=== PATIENT | female | born 1955 | race Caucasian/White ===

== ENCOUNTER → 2020-05-04 10:52 | Outpatient (BNVA) | payer OTHER, SELFPAY | PROVIDERS: PCP Internal Medicine; Visit Provider Surgery | DX: Z76.89 Persons encountering health services in other specified circumstances (principal) ==

== ENCOUNTER → 2020-11-03 09:35 | Outpatient (BNVA) | payer OTHER, SELFPAY | PROVIDERS: PCP Internal Medicine; Referring Provider Internal Medicine; Visit Provider Surgery ==

== ENCOUNTER → 2021-05-09 09:37 | Outpatient (BNVA) | payer OTHER, SELFPAY | PROVIDERS: PCP Internal Medicine; Referring Provider Internal Medicine; Visit Provider Surgery ==

== ENCOUNTER 2021-12-13 06:22 | Day surgery (SDC) | payer OTHER, SELFPAY ==
[2021-12-07 08:44] VITALS: BMI 28.0
[2021-12-13 06:52] VITALS: BP 142/92; PULSE 83; RESP 16; TEMP 36.9; O2SAT 96
--- NOTE | 2021-12-13 07:19 | HO.ANESPROP2 ---
[facility] Active Problems Active Problems: All Active Problems (Updated 12/06/21 @ 15:37 by Tequila Resendiz RN) Annual physical exam (Acute) Essential hypertension (Acute) Invasive ductal carcinoma of left breast (Acute) GERD (gastroesophageal reflux disease) (Acute) Past Medical History Medical History GERD (gastroesophageal reflux disease) History of left breast cancer HTN (hypertension) Invasive ductal carcinoma of left breast Leukopenia Mitral valve regurgitation Osteoporosis Rosacea Vitamin D deficiency Family History Family History Father History of brain cancer History of bladder cancer Mother History of rheumatoid arthritis Family history of COPD (chronic obstructive pulmonary disease) History of asthma History of heart disease Paternal Grandmother History of ovarian cancer Paternal Uncle History of throat cancer Paternal Aunt History of colon cancer Maternal Grandmother History of rheumatoid arthritis Surgical History Surgical History H/O colonoscopy History of section History of esophagogastroduodenoscopy (EGD) History of lumpectomy of left breast (01/14/18) History of Problems with Anesthesia: No Social History Social History Housing: House Alcohol intake: current Alcohol intake frequency: holidays/special occasions only Patient Tobacco Use Status: Never used Tobacco e-Cigarette/Vaping Use: Never Used Second Hand Smoke Exposure: No Use of substances other than those prescribed or required for medical reasons: No Are you DNR?: No Advance Directives: No Advance Directives Information Provided: No service: No Current occupational status: employed Cognitive needs: No Hearing needs: No Vision needs: No Meds Allergies Allergy/AdvReac Type Severity Reaction Status Date / Time Sulfa (Sulfonamide Allergy Severe HIVES; Verified 12/13/21 06:54 Antibiotics) SWOLLEN LIPS, swelling, hives Active Medications: Current Medications Lactated Ringer's (Lr) 1,000 mls @ 50 mls/hr IVCONT .Q20H HAI Sodium Biphosphate/Sodium Phosphate (Sodium Phosphate,[place] 133 Ml Enema) 133 ml [place] ONCE PRN PRN Reason: Poor Colonoscopy Prep Results Home Medications Medication Instructions Recorded Confirmed Last Taken Type anastrozole 1 mg tablet 1 mg PO DAILY 05/04/20 12/13/21 Unknown History azelaic acid 15 % topical gel 1 appl topical BID 01/19/21 12/13/21 Unknown History (Finacea) famotidine 20 mg tablet (Pepcid) 20 mg PO BEDTIME PRN gerd 01/19/21 12/13/21 Unknown History Exam Exam Date and Time: December 13, [id number] Height,Weight and Vital Signs: Height 5 ft 3.5 in Weight 73.028 kg Last Vital Signs Temp 98.4 F 12/13/21 06:52 Pulse 83 12/13/21 06:52 Resp 16 12/13/21 06:52 BP 142/92 H 12/13/21 06:52 Pulse Ox 96 12/13/21 06:52 O2 Del Method 12/13/21 06:52 Airway Mallampati Class: III TM Dist: >3cm Neck ROM: Full Heart: RRR Lungs: CTA Assessment and Plan Assessment Anesthesia Assessment: Anesthesia Plan Discussed and Chart Reviewed Final Anesthetic Review History of Problems with Anesthesia: No NPO: Yes ASA Class: II Final Preanesthetic Review: Meds/Allgs Chart Reviewed, Consent Obtained/Reviewed and Anes Risks/Benef Reviewed Patient Risk: Low Procedure Risk: Intermediate Anesthetic Plan Anesthetic Plan: MAC: Disposition: Standard PACU
[2021-12-13 08:41] VITALS: BP 111/71; PULSE 67; RESP 20; TEMP 36.4; O2SAT 100
--- NOTE | 2021-12-13 08:47 | P.BOP_ITS ---
Brief Operative Note Date of Service: 12/13/21 Pre-op diagnosis: GERD, Screening Post-op diagnosis: other (Hiatal hernia, Polyps) Procedure: EGD with biopsies, Colonoscopy to the cecum with bx/removal of polyps Surgeon: Marco Lynch Anesthesia: MAC Was an Studio Control Operator used for this Procedure?: No Estimated blood loss (mL): 2.0 Pathology: other (A. EG Junction at 36cm B. Cecal polyp C. Ascending colon polyp D. Rectal polyp) Condition: stable Disposition: PACU
[2021-12-13 08:56] VITALS: BP 114/76; PULSE 70; RESP 18; TEMP 36.4; O2SAT 99
--- NOTE | 2021-12-13 20:48 | OP_ITS ---
SURGEON: Marco Lynch MD INDICATIONS: The patient presents for evaluation of chronic gastroesophageal reflux, personal history of tubular adenoma of the colon, and need for colorectal cancer screening. Full consent has been obtained from her for this, including risks of bleeding and perforation. PREOPERATIVE DIAGNOSIS: Gastroesophageal reflux, personal history of tubular adenoma of the colon, colorectal cancer screening. POSTOPERATIVE DIAGNOSIS: Gastroesophageal reflux, personal history of tubular adenoma of the colon, colorectal cancer screening, hiatal hernia, colon polyps, diverticulosis, and internal hemorrhoids. PROCEDURE PERFORMED: Esophagogastroduodenoscopy with biopsies and colonoscopy to the cecum and terminal ileum with biopsy and removal of polyps. ESTIMATED BLOOD LOSS: COMPLICATIONS: ANESTHESIA: Monitored anesthesia care. ASSISTANTS: SPECIMENS: DESCRIPTION OF PROCEDURE: The patient was placed in the left lateral decubitus position. The Olympus video gastroscope was passed in the posterior oropharynx and upper esophagus under direct vision. The scope was passed slowly to the distal esophagus. The gastroesophageal junction appeared at 36 cm. There was some slight irregularity consistent with reflux but no evidence of esophagitis nor any definitive evidence of Resendiz's mucosa. The scope entered into the stomach. There was a small hiatal hernia. The scope was advanced to the pylorus, and the duodenum was cannulated to the descending portion. The duodenum including the bulb appeared normal without mass or ulceration. The scope was withdrawn back into the stomach. The gastric antrum and body appeared normal with good peristalsis. The scope was retroflexed visualizing the proximal stomach carefully, which appeared normal, without any sign of mass or ulceration. The scope was straightened and withdrawn back into the esophagus. Biopsies were obtained at the EG junction at 36 cm. Proximal to that the esophageal mucosa appeared normal. The scope was withdrawn from the patient. She was turned around for the colonoscopy. The digital rectal exam revealed no abnormalities. The Olympus video pediatric colonoscope was entered into the rectum advanced easily to the cecum. Once in the cecum, I did identify normal-appearing cecal pouch with appendiceal orifice. The entire cecum was well visualized and appeared normal other than a 3 mm polyp, which was biopsied and completely removed with cold biopsy forceps. The terminal ileum was cannulated and appeared normal. The scope was withdrawn back in the colon. The scope was slowly withdrawn assessing all mucosal surfaces carefully. Preparation was excellent. In the ascending colon and distal rectum, seen in the retroflexed position, were flat less than 5 mm polyps, which were each biopsied and completely removed with the cold biopsy forceps. I did not visualize any other polyps, colitis, or angiodysplasia. There was a mild amount of sigmoid diverticulosis. In the rectum, the scope was retroflexed visualizing small internal hemorrhoids as well. The scope was straightened and withdrawn from the patient. She tolerated the procedure well and was returned to the recovery area in stable condition. IMPRESSION: 1. Small colon polyps, status post biopsy and removal. 2. Diverticulosis. 3. Internal hemorrhoids. 4. Hiatal hernia, gastroesophageal reflux. PLAN: The results of the biopsies will be checked. I would recommend a repeat colonoscopy in 5 years. At this point, she is using [id number] H2 blockers for symptomatic relief of reflux, and I advised her to continue that as needed. She was advised not to use any aspirin and NSAIDs for 1 week. She will otherwise see me on a p.r.n. basis. MD RASHIDA Horowitz/JOSE / [id number] MTDD
== END 2021-12-13 09:49 | disposition home or self-care (01) ==
PROVIDERS: PCP Internal Medicine; Visit Provider Internal Medicine
PROC: (CPT 45380; principal; 2021-12-13 07:30)
DX: Z12.11 Encounter for screening for malignant neoplasm of colon (principal); Z86.010 Personal history of colon polyps; D12.2 Benign neoplasm of ascending colon; K63.5 Polyp of colon; K62.1 Rectal polyp; K57.30 Diverticulosis of large intestine without perforation or abscess without bleeding; K64.8 Other hemorrhoids; K21.9 Gastro-esophageal reflux disease without esophagitis; K44.9 Diaphragmatic hernia without obstruction or gangrene; I10 Essential (primary) hypertension; L71.9 Rosacea, unspecified; C50.912 Malignant neoplasm of unspecified site of left female breast; Z92.3 Personal history of irradiation; Z79.811 Long term (current) use of aromatase inhibitors; Z79.899 Other long term (current) drug therapy
CPT/HCPCS: 45380; 43239; 88305; J2250

== ENCOUNTER → 2022-08-07 09:35 | Outpatient (BNVA) | payer OTHER, SELFPAY | PROVIDERS: PCP Internal Medicine; Visit Provider Surgery | DX: Z13.89 Encounter for screening for other disorder (principal) ==

== ENCOUNTER 2023-01-22 09:02 | Outpatient (REF) | payer OTHER, SELFPAY ==
[2023-01-22 09:20] LABS: MANUAL DIFF FLAG NO
[2023-01-22 10:00] LABS: Basophils Absolute Auto 0.1 X10*3/uL (0.0-0.2); Basophils Percent Auto 1.1 % (0-2); Eosinophils Absolute Auto 0.3 X10*3/uL (0.0-0.4); Eosinophils Percent Auto 6.1 % (0-4); Hematocrit 41.7 % (37.0-47.0); Hemoglobin 13.8 g/dl (12.0-16.0); Imm Gran Abs Auto 0.03 X10*3/uL (0.00-0.03); Imm Gran Pct Auto 0.6 % (0.0-0.4); Lymphocytes Absolute Auto 1.5 X10*3/uL (1.2-4.9); Lymphocytes Percent Auto 27.6 % (20-40); Mean Corpuscular HGB Conc 33.1 g/dl (31.0-35.0); Mean Corpuscular Volume 93.7 fL (80.0-98.0); Mean Platelet Volume 11.4 fL (9.4-12.3); Monocytes Absolute Auto 0.6 X10*3/uL (0.1-1.2); Neutrophils Absolute Auto 2.9 x10*3/uL (2.0-8.3); Neutrophils Percent Auto 53.6 % (45-73); Platelet Count 283 X10*3/uL (160-400); Red Blood Count 4.45 X10*6/uL (4.20-5.50); Red Cell Distribution Width 13.2 % (11.0-16.0); White Blood Count 5.4 X10*3/uL (4.8-10.8)
[2023-01-22 11:42] LABS: Alanine Aminotransferase 25 U/L (0-31); Albumin Level 4.1 g/dL (3.5-5.0); Alkaline Phosphatase 60 U/L (39-117); Anion Gap 11 (12-20); Aspartate Amino Transferase 20 U/L (5-31); Bilirubin Total 0.5 mg/dL (0.0-1.0); Blood Urea Nitrogen 18 mg/dL (9-16); Carbon Dioxide 26 mmol/L (22-29); Chloride 108 mmol/L (96-108); Cholesterol 227 mg/dL (<200); Estimated Glomerular Filt Rate > 60; Glucose Random 98 mg/dL (60-115); HDL Cholesterol 73 mg/dL (>40); LDL Cholesterol Calculated 140 mg/dL (<100); Potassium 4.2 mmol/L (3.3-5.1); Sodium 141 mmol/L (135-145); Total Protein 7.1 g/dL (6.5-8.0); Triglycerides 74 mg/dL (<150)
[2023-01-22 12:06] LABS: Free T4 (Free Thyroxine) 0.96 ng/dL (0.71-1.85); Thyroid Stimulating Hormone 0.88 uIU/mL (0.32-4.0); Vitamin D 25-OH Total 51.1 ng/mL (>30)
[2023-01-22 12:20] LABS: Folate 10.5 ng/mL (> or = 4.0); Vitamin B12 255 pg/mL (200-900)
== END 2023-01-22 09:03 | disposition home or self-care (01) ==
LOC: HO.LAB 09:02
PROVIDERS: PCP Internal Medicine; Visit Provider Internal Medicine
DX: I10 Essential (primary) hypertension (principal); E78.00 Pure hypercholesterolemia, unspecified; E55.9 Vitamin D deficiency, unspecified
CPT/HCPCS: 36415; 80053; 80061; 82306; 82607; 82746; 84439; 84443; 85025

== ENCOUNTER 2023-02-04 08:52 | Outpatient (AMB) | payer OTHER, SELFPAY ==
--- NOTE | 2023-02-04 08:54 | A.OFFPC_ITS ---
Vital Signs 02/04/23 08:56 Height 5 ft 3.5 in Weight 160 lb BMI 27.9 BP 160/98 H Blood Pressure Location Lt brachial Position Sitting Pulse 78 Pulse Source Pulse Oximeter Pulse Oximetry (%) 99 Oxygen Delivery Method Room Air Intake Visit Reasons: PE Intake Note: Patient here for a physical exam Stitcher Utility Required: No Accompanied by: Self / Same As Patient Allergies Sulfa (Sulfonamide Antibiotics) Allergy (Severe, Verified 02/04/23 08:57) HIVES; SWOLLEN LIPS, swelling, hives Medication List - Last Reconciled 02/04/23 by Chaitanya Hayes MD anastrozole 1 mg PO DAILY azelaic acid 15% (Finacea) 1 appl topical BID cholecalciferol (vitamin D3) 50 mcg PO DAILY lisinopril 10 mg PO DAILY omeprazole 20 mg PO DAILY Tobacco use date assessed: 02/04/23 Fall risk assessment: No Falls in past year Last assessed Fall Risk: 02/04/23 Dental Screening Dental Screen Date: 02/04/23 Did you have a dental visit in the last 12 months?: No Did you have a dental problem in the last 6 months where you did not have access to dental care?: No Was dental information given to patient?: Patient has dentist HPI PE HPI Details 67-year-old overweight female with a his tory of left breast [id number], hypertension GERD last seen last year January 2022. Bone density September 2020, colonoscopy is up-to-date mammogram due. Review of the notes follows up with hematology oncology in [facility] August [address]22 Dr. Sarabia status post radiation March 2018 presently on anastrozole screening mammogram February 2022 repeat DEXA scan scheduled for September 2022 [facility] Medical History GERD (gastroesophageal reflux disease) History of left breast cancer HTN (hypertension) Invasive ductal carcinoma of left breast Leukopenia Mitral valve regurgitation Osteoporosis Rosacea Vitamin D deficiency Surgical History H/O colonoscopy History of esophagogastroduodenoscopy (EGD) History of lumpectomy of left breast (01/14/18) History of section Family History (Updated 02/04/23 @ 08:55 by JUANITA Paige) Father History of brain cancer History of bladder cancer Mother History of rheumatoid arthritis Family history of COPD (chronic obstructive pulmonary disease) History of asthma History of heart disease Paternal Grandmother History of ovarian cancer Paternal Uncle History of throat cancer Paternal Aunt History of colon cancer Maternal Grandmother History of rheumatoid arthritis Social History (Updated 02/04/23 @ 09:14 by Chaitanya Hayes MD) Housing: House Alcohol intake: current Alcohol intake frequency: holidays/special occasions only Patient Tobacco Use Status: Never used Tobacco e-Cigarette/Vaping Use: Never Used Second Hand Smoke Exposure: No service: No Current occupational status: employed Current occupational exposures/hazards: No Cognitive needs: No Hearing needs: No Vision needs: No Questionnaire PHQ-9 Over the last 2 weeks, how often have you been bothered by any of the following problems? 1. Little interest or pleasure in doing things: not at all 2. Feeling down, depressed, or hopeless: not at all 3. Trouble falling or staying asleep, or sleeping too much: not at all 4. Feeling tired or having little energy: not at all 5. Poor appetite or overeating: not at all 6. Feeling bad about yourself - or that you are a failure or have let yourself or your family down: not at all 7. Trouble concentrating on things, such as reading the newspaper or watching television: not at all 8. Moving or speaking so slowly that other people could have noticed. Or the opposite - being so fidgety or restless that you have been moving around a lot more than usual: not at all 9. Thoughts that you would be better off or of hurting yourself in some way: not at all Total score: 0 Source: Developed by Drs. Marco Smith, Judi Peña, Andrew Sanchez and colleagues, with an educational rbyan from [employer]. Thrive Questionnaire Date Thrive assessed: 02/04/23 I am a: Patient What is your living situation today?: I have a steady place to live Within the past 12 months, did the food you bought not last and you didn't have the money to get more?: Never true Within the past 12 months, did you worry whether your food would run out before you got money to buy more?: Never true Do you have trouble paying for medicines?: No Do you have trouble getting transportation to medical appointments?: No Do you have trouble paying your heating and electricity bill?: No Do you have trouble taking care of your child, family member or friend?: No Do you have trouble with day-to-day activities such as bathing, preparing meals, shopping, managing finances, etc.?: No Are you currently unemployed and looking for a job?: No Are you interested in more education?: No Please select the resources that you would like help with: None Currently or been in a relationship where the following occur: no concerns reported AUDIT C Alcohol Use Questionnaire (AUDIT-C) 1. How often do you have a drink containing alcohol?: 2-3 times a week 2. How many drinks containing alcohol do you have on a typical day when you are drinking?: 3 or 4 3. How often do you have six or more drinks on one occasion?: Never Total Score: 4 AYSE-7 AMB Questionnaire AYSE-7 Date AYSE - 7 assessed: 02/04/23 Feeling nervous, anxious, or on edge: 0 = Not at all Not being able to stop or control worryin = Not at all Worrying too much about different things: 0 = Not at all Trouble relaxin = Not at all Being so restless that it is hard to sit still: 0 = Not at all Becoming easily annoyed or irritable: 0 = Not at all Feeling afraid as if something awful might happen: 0 = Not at all Total AYSE-7 score (0-4 normal; 5-9 mild; 10-14 moderate; 15-21 severe): 0 Source: Developed by Drs. Marco Smith, Judi Peña, Andrew Sanchez and colleagues, with an educational bryan from [employer]. Review of Systems Const Denies poor appetite and Denies weakness Eyes Denies no additional complaints ENT Reports Normal hearing present, Denies dizziness, Denies nasal congestion, Denies tinnitus and Denies sore throat Card Denies chest pain, Denies syncope, Denies rapid heart rate and Denies dyspnea Resp Denies cough and Denies dyspnea GI Denies change in stool character, Reports constipation, Denies diarrhea, Denies nausea and Denies vomiting Denies urinary frequency, Denies difficulty voiding and Denies dysuria Neuro Reports Normal hearing present, Denies confusion, Denies dizziness, Denies syncope and Denies weakness Psych Denies confusion Physical exam (Primary Care) Vital Signs: Last Vital Signs Pulse 78 02/04/23 08:56 BP 160/98 H 02/04/23 08:56 Pulse Ox 99 02/04/23 08:56 Oxygen Delivery Method Room Air 02/04/23 08:56 BMI result Body Mass Index 27.9 Tobacco/Smoking Status: Tobacco use Status Tobacco use date assessed 02/04/23 02/04/23 09:01 Patient Tobacco Use Status Never used Tobacco 02/04/23 09:01 e-Cigarette/Vaping Use Never Used 02/04/23 09:01 PHQ-9: PHQ-9 Score PHQ-9: Total score 0 02/04/23 09:01 Thrive Assessment: Date of Thrive Assessment Date Thrive assessed 02/04/23 02/04/23 09:01 Currently or been in a relationship where the following occur: no concerns reported Const General: No confusion Orientation/consciousness: No confusion HENMT Head: Yes normocephalic Ears: external ears normal and TM's normal bilaterally Face and sinus: Yes normal facial exam Mouth: moist mucous membranes Throat: Yes tonsils normal Eyes Conjunctivae: conjunctivae normal Pupils: Equal, round and reactive pupils present and Pupil accommodation reflex normal Direct Ophthalmoscopy: normal light reflex Neck Neck: No lymphadenopathy Thyroid: Thyroid normal Chest Chest palpation & inspection: normal inspection of the chest Resp Effort & Inspection: normal respiratory effort and no audible wheezes Auscultation: clear to auscultation bilaterally, no crackles, no wheezes and lung sounds not diminished Cardio Rate: regular rate Rhythm: regular rhythm Peripheral pulses: radial pulses present and dorsalis pedis present GI Palpation (GI): no masses Auscultation: normal bowel sounds and normoactive bowel sounds Rectal Exam - Female: deferred Skin General skin exam: no rashes or lesions noted Rashes: no rashes Neuro General: No confusion Cranial nerves: Yes Equal, round and reactive pupils present and Yes Normal hearing present Cognition (Neuro): normal cognition Gait exam (Neuro): Normal gait present Motor exam (neuro): 5/5 motor strength present throughout Deep tendon reflexes (DTR's): Right brachioradialis reflex intensity grade: 2+, Left brachioradialis reflex intensity grade: 2+, Right patellar reflex intensity grade: 2+ and Left patellar reflex intensity grade: 2+ Extrem General: No edema Assessment and Plan Assessment & Plan (1) Annual physical exam: Code(s): Z00.00 - Encounter for general adult medical examination without abnormal findings (2) Invasive ductal carcinoma of left breast: Comment: June 2018, radiation, lumpectomy Dr. David 2018 anastrozole(March 2018) 7 year Code(s): C50.912 - Malignant neoplasm of unspecified site of left female breast Plan: Patient continue to follow-up with hematology oncology on anastrozole(March 2018) 7 year (3) Essential hypertension: Code(s): I10 - Essential (primary) hypertension Plan: Continue with blood pressure medication. Decrease salt intake and exercise patient is on lisinopril 5 mg once a day (4) GERD (gastroesophageal reflux disease): Code(s): K21.9 - Gastro-esophageal reflux disease without esophagitis Plan: Avoid the foods that causes that usually spicy foods, tomato products, juices, coffee, soda and foods that your sensitive to. After eating do not lie down, allow 3-4 hours before in lie down. And keep the head of bed above 30 degrees to avoid the acid from going up. Continue with omeprazole (5) Hypercholesterolemia: Code(s): E78.00 - Pure hypercholesterolemia, unspecified Plan: Avoid fried foods, chicken skin, eggs, butter margarine, pastries and meat. Be it pork or beef they have a lot of cholesterol LDL goal of less than 130 and triglyceride of less than 150 (6) Osteopenia: Code(s): M85.80 - Other specified disorders of bone density and structure, unspecified site Plan: Patient is being followed up by hematology oncology (7) Hearing difficulty: Code(s): H91.90 - Unspecified hearing loss, unspecified ear Orders: Referrals Speech and Hearing Referral H91.90 - Unspecified hearing loss, unspecified ear Medications: Changed From lisinopril 5 mg PO DAILY 90 tabs 2RF I10 - Essential (primary) hypertension To lisinopril 10 mg PO DAILY 90 tabs 2RF I10 - Essential (primary) hypertension Coding Level of Care Code Est Pt Prev Care >65y(68705) Diagnoses Annual physical exam Z00.00 Invasive ductal carcinoma of left breast C50.912 Essential hypertension I10 GERD (gastroesophageal reflux disease) K21.9 Hypercholesterolemia E78.00 Osteopenia M85.80 Hearing difficulty H91.90
[2023-02-04 08:56] VITALS: BP 160/98; PULSE 78; O2SAT 99; BMI 27.9
== END 2023-02-04 09:27 | disposition home or self-care (01) ==
PROVIDERS: PCP Internal Medicine; Visit Provider Internal Medicine
DX: Z00.00 Encounter for general adult medical examination without abnormal findings (principal); C50.912 Malignant neoplasm of unspecified site of left female breast; I10 Essential (primary) hypertension; K21.9 Gastro-esophageal reflux disease without esophagitis; E78.00 Pure hypercholesterolemia, unspecified; M85.80 Other specified disorders of bone density and structure, unspecified site; H91.90 Unspecified hearing loss, unspecified ear
CPT/HCPCS: 99397

== ENCOUNTER → 2023-03-26 09:29 | Outpatient (BNVA) | payer OTHER, SELFPAY | PROVIDERS: PCP Internal Medicine; Visit Provider Surgery ==

== ENCOUNTER 2023-03-28 09:44 | Outpatient (AMB) | payer OTHER, SELFPAY ==
--- NOTE | 2023-03-28 09:59 | MHC.OFFVIS ---
Intake Vital Signs 03/28/23 10:11 Height 5 ft 3.5 in Weight 166 lb BMI 28.9 BP 183/85 H Blood Pressure Location Lt brachial Position Sitting Pulse 77 Intake Visit Reasons: breast exam after mammo Intake Note: Patient is seen in office for breast exam after mammogram. Patient c/o: right breast felt swollen and some burning mm [facility]: 03/25/23 Second Miller Required: No Last Remodeler Repairer: Last Remodeler Repairer Present Accompanied by: Self / Same As Patient Allergies Sulfa (Sulfonamide Antibiotics) Allergy (Severe, Verified 03/28/23 10:00) HIVES; SWOLLEN LIPS, swelling, hives Medication List - Last Reconciled 03/28/23 by Nithin David MD anastrozole 1 mg PO DAILY azelaic acid 15% (Finacea) 1 appl topical BID cholecalciferol (vitamin D3) 50 mcg PO DAILY lisinopril 10 mg PO DAILY omeprazole 20 mg PO DAILY HPI HPI Comments History of Present Illness Details 67-year-old female returning today following left breast lumpectomy and sentinel node biopsy of the left axilla on 01/14/2018. The pathology revealed invasive ductal ca 1.2 cm with 0/10 sentinel nodes positive for malignancy, ER+/WY+/Her2-oliva negative. (pT1a N0 (sn)(i-). She completed radiation therapy and is now taking Arimodex daily (planned for total of 7 years). She denies any new symptoms in the left breast and denies any swelling in the left arm. She continues to report an area of thickening in the upper outer quadrant extending into the axilla in the area of axillary breast tissue which comes and goes, both in the right and left breast.? Her most recent mammogram performed at [facility] on 03/25/2023 revealed no mammographic evidence of malignancy (BI-RADS 2). Yearly annual screening was recommended.? She denies any new breast symptoms today. ? [facility] Medical History History of left breast cancer HTN (hypertension) Leukopenia Osteoporosis Vitamin D deficiency GERD (gastroesophageal reflux disease) Invasive ductal carcinoma of left breast Rosacea Mitral valve regurgitation Surgical History H/O colonoscopy History of esophagogastroduodenoscopy (EGD) History of lumpectomy of left breast (01/14/18) History of section Family History Father History of brain cancer History of bladder cancer Mother History of rheumatoid arthritis Family history of COPD (chronic obstructive pulmonary disease) History of asthma History of heart disease Paternal Grandmother History of ovarian cancer Paternal Uncle History of throat cancer Paternal Aunt History of colon cancer Maternal Grandmother History of rheumatoid arthritis Social History Housing: House Alcohol intake: current Alcohol intake frequency: holidays/special occasions only Patient Tobacco Use Status: Never used Tobacco e-Cigarette/Vaping Use: Never Used Second Hand Smoke Exposure: No service: No Current occupational status: employed Current occupational exposures/hazards: No Cognitive needs: No Hearing needs: No Vision needs: No Review of Systems ENT Reports Normal hearing present Neuro Reports Normal hearing present Physical Exam Const General: no acute distress and well developed Nutritional Appearance: well nourished Orientation/consciousness: patient oriented x3 Limitations: no limitations HEENT Head: Yes normocephalic and Yes atraumatic Chest Other: Right breast: No skin change, no nipple discharge, no palpable mass, no enlarged lymph nodes Left breast: Well-healed incision in the upper outer quadrant and axilla. No new skin change, no nipple discharge, no palpable mass, no enlarged lymph nodes. Resp Effort & Inspection: normal respiratory effort, no audible wheezes, no cough and no respiratory distress GI Inspection: Yes normal to inspection Skin General skin exam: no rashes or lesions noted Neuro General: patient oriented x3 Cranial nerves: Yes Normal hearing present Extrem General: Yes no clubbing, cyanosis or edema Assessment & Plan Assessment & Plan (1) Invasive ductal carcinoma of left breast: Comment: June 2018, radiation, lumpectomy Dr. David 2017 anastrozole(March 2018) 7 year Code(s): C50.912 - Malignant neoplasm of unspecified site of left female breast Plan 67-year-old female patient with a prior history of invasive ductal carcinoma of the left breast status post lumpectomy with needle localization, sentinel node biopsy. This was followed by radiation therapy and Arimidex which she continues on today. Examination today reveals no suspicious findings no evidence of recurrence disease. Her most recent mammogram dated 03/25/2023 revealed no mammographic evidence of malignancy (BI-RADS 1). She should follow up in 1 year for routine breast examination, sooner p.r.n.. Coding Level of Care Code Est Pt Level 3 (80874) Diagnoses Invasive ductal carcinoma of left breast C50.912
[2023-03-28 10:11] VITALS: BP 183/85; PULSE 77; BMI 28.9
== END 2023-03-28 10:14 | disposition home or self-care (01) ==
PROVIDERS: PCP Internal Medicine; Visit Provider Surgery
DX: C50.912 Malignant neoplasm of unspecified site of left female breast (principal)
CPT/HCPCS: 99213

== ENCOUNTER → 2023-03-28 09:44 | Outpatient (BNVA) | payer OTHER, SELFPAY | PROVIDERS: PCP Internal Medicine; Visit Provider Surgery ==

== ENCOUNTER 2023-05-22 08:34 | Outpatient (AMB) | payer OTHER, SELFPAY ==
[2023-05-22 08:37] VITALS: BP 132/90; PULSE 86; O2SAT 99; BMI 28.6
--- NOTE | 2023-05-22 08:38 | A.OFFPC_ITS ---
Vital Signs 05/22/23 08:37 Height 5 ft 3.5 in Weight 164 lb BMI 28.6 BP 132/90 H Blood Pressure Location Lt brachial Position Sitting Pulse 86 Pulse Source Pulse Oximeter Pulse Oximetry (%) 99 Oxygen Delivery Method Room Air Intake Visit Reasons: Hypertension Allergies Sulfa (Sulfonamide Antibiotics) Allergy (Severe, Verified 05/22/23 08:38) HIVES; SWOLLEN LIPS, swelling, hives Tobacco use date assessed: 05/22/23 Fall risk assessment: No Falls in past year Last assessed Fall Risk: 05/22/23 HPI Hypertension HPI Details 68-year-old overweight female with a his tory of breast cancer left 2017, hypertension hypercholesterolemia GERD osteopenia coming in for follow-up last seen in January 2023. Patient follows up with the surgeon March 2023 and up-to-date with mammogram, hematology oncology also February 2023 Dr. Sarabia(status post needle localization excision and axillary dissection status post radiation therapy completed March 2018 declines adjuvant zoledronic acid) anastrozole March 2018. BP at home has been good. growth cyst on the R 4th finger. It did have the bone density done. Otherwise no nausea no vomiting no chest pains no shortness of breath no bowel bladder symptoms. [facility] Medical History History of left breast cancer HTN (hypertension) Leukopenia Osteoporosis Vitamin D deficiency GERD (gastroesophageal reflux disease) Invasive ductal carcinoma of left breast Rosacea Mitral valve regurgitation Surgical History H/O colonoscopy History of esophagogastroduodenoscopy (EGD) History of lumpectomy of left breast (01/14/18) History of section Family History Father History of brain cancer History of bladder cancer Mother History of rheumatoid arthritis Family history of COPD (chronic obstructive pulmonary disease) History of asthma History of heart disease Paternal Grandmother History of ovarian cancer Paternal Uncle History of throat cancer Paternal Aunt History of colon cancer Maternal Grandmother History of rheumatoid arthritis Social History Housing: House Alcohol intake: current Alcohol intake frequency: holidays/special occasions only Patient Tobacco Use Status: Never used Tobacco e-Cigarette/Vaping Use: Never Used Second Hand Smoke Exposure: No service: No Current occupational status: employed Current occupational exposures/hazards: No Cognitive needs: No Hearing needs: No Vision needs: No Questionnaire PHQ-9 Over the last 2 weeks, how often have you been bothered by any of the following problems? 1. Little interest or pleasure in doing things: not at all 2. Feeling down, depressed, or hopeless: not at all 3. Trouble falling or staying asleep, or sleeping too much: not at all 4. Feeling tired or having little energy: not at all 5. Poor appetite or overeating: not at all 6. Feeling bad about yourself - or that you are a failure or have let yourself or your family down: not at all 7. Trouble concentrating on things, such as reading the newspaper or watching television: not at all 8. Moving or speaking so slowly that other people could have noticed. Or the opposite - being so fidgety or restless that you have been moving around a lot more than usual: not at all 9. Thoughts that you would be better off or of hurting yourself in some way: not at all Total score: 0 Source: Developed by Drs. Marco Smith, Andrew Arredondo and colleagues, with an educational bryan from [employer]. Thrive Questionnaire Date Thrive assessed: 02/04/23 AUDIT C Alcohol Use Questionnaire (AUDIT-C) 1. How often do you have a drink containing alcohol?: 2-3 times a week 2. How many drinks containing alcohol do you have on a typical day when you are drinking?: 3 or 4 3. How often do you have six or more drinks on one occasion?: Never Total Score: 4 AYSE-7 AMB Questionnaire AYSE-7 Date AYSE - 7 assessed: 05/22/23 Source: Developed by Drs. Marco Smith, Andrew Arredondo and colleagues, with an educational bryan from [employer]. Physical exam (Primary Care) Vital Signs: Oxygen Delivery Method Room Air 05/22/23 08:37 BMI result Body Mass Index 28.6 Tobacco/Smoking Status: Tobacco use Status Tobacco use date assessed 01/03/24 01/03/24 08:38 Patient Tobacco Use Status Never used Tobacco 05/22/23 08:38 e-Cigarette/Vaping Use Never Used 05/22/23 08:38 PHQ-9: PHQ-9 Score PHQ-9: Total score 0 05/22/23 08:38 Thrive Assessment: Date of Thrive Assessment Date Thrive assessed 02/04/23 05/22/23 08:38 Const General: alert; No acute distress Eyes Conjunctivae: conjunctivae normal Resp Auscultation: clear to auscultation bilaterally Cardio Rate: regular rate Rhythm: regular rhythm GI Inspection: Yes normal to inspection Extrem Other: Right 4th finger mass 1 cm rounded mass discussed that this is ganglion cyst and which is monitor for this. No surgeries needed General: Yes normal to inspection and No edema Assessment and Plan Assessment & Plan (1) Invasive ductal carcinoma of left breast: Comment: June 2018, radiation, lumpectomy Dr. David 2018 anastrozole(March 2018) 7 year Code(s): C50.912 - Malignant neoplasm of unspecified site of left female breast Plan: Continue to follow-up with Hematology-Oncology and mammogram is up-to-date (2) Essential hypertension: Code(s): I10 - Essential (primary) hypertension Plan: Continue with blood pressure medication. Decrease salt intake and exercise advised to monitor at home on lisinopril 10 mg once a day. BP at home 122/75 controlled continue withy BP meds (3) GERD (gastroesophageal reflux disease): Code(s): K21.9 - Gastro-esophageal reflux disease without esophagitis Plan: Avoid the foods that causes that usually spicy foods, tomato products, juices, coffee, soda and foods that your sensitive to. After eating do not lie down, allow 3-4 hours before in lie down. And keep the head of bed above 30 degrees to avoid the acid from going up. (4) Hypercholesterolemia: Code(s): E78.00 - Pure hypercholesterolemia, unspecified Plan: Avoid fried foods, chicken skin, eggs, butter margarine, pastries and meat. Be it pork or beef they have a lot of cholesterol LDL goal of less than 130 and triglyceride of less than 150 (5) Osteopenia: Code(s): M85.80 - Other specified disorders of bone density and structure, unspecified site Plan: Bone density is due this year but did not see any results. Coding Level of Care Code Est Pt Level 4 (83881) Diagnoses Invasive ductal carcinoma of left breast C50.912 Essential hypertension I10 GERD (gastroesophageal reflux disease) K21.9 Hypercholesterolemia E78.00 Osteopenia M85.80
== END 2023-05-22 08:53 | disposition home or self-care (01) ==
PROVIDERS: PCP Internal Medicine; Visit Provider Internal Medicine
DX: C50.912 Malignant neoplasm of unspecified site of left female breast (principal); I10 Essential (primary) hypertension; K21.9 Gastro-esophageal reflux disease without esophagitis; E78.00 Pure hypercholesterolemia, unspecified; M85.80 Other specified disorders of bone density and structure, unspecified site
CPT/HCPCS: 99214

== ENCOUNTER 2023-07-25 08:14 | Outpatient (REF) | payer OTHER, SELFPAY | END 2023-07-25 08:15 | disposition home or self-care (01) | LOC: HO.SH 08:14 | PROVIDERS: Visit Provider Internal Medicine | DX: Z01.118 Encounter for examination of ears and hearing with other abnormal findings (principal); H90.42 Sensorineural hearing loss, unilateral, left ear, with unrestricted hearing on the contralateral side; H93.12 Tinnitus, left ear | CPT/HCPCS: 92557; 92567 ==

== ENCOUNTER 2024-02-10 08:48 | Outpatient (AMB) | payer OTHER, SELFPAY ==
[2024-02-10 08:51] VITALS: BP 130/72; PULSE 75; O2SAT 99; BMI 28.2
--- NOTE | 2024-02-10 08:51 | A.OFFPC_ITS ---
Vital Signs 02/10/24 08:51 Height 5 ft 3.5 in Weight 162 lb BMI 28.2 BP 130/72 Blood Pressure Location Lt brachial Position Sitting Pulse 75 Pulse Source Pulse Oximeter Pulse Oximetry (%) 99 Oxygen Delivery Method Room Air Intake Visit Reasons: Annual Exam Measurement Department Chief Clerk Required: No Accompanied by: Self / Same As Patient Allergies Sulfa (Sulfonamide Antibiotics) Allergy (Severe, Verified 02/10/24 09:10) HIVES; SWOLLEN LIPS, swelling, hives Medication List - Last Reconciled 02/10/24 by Shell Garcia PA-C anastrozole 1 mg PO DAILY azelaic acid 15% (Finacea) 1 appl topical BID cholecalciferol (vitamin D3) 50 mcg PO DAILY lisinopril 10 mg PO DAILY omeprazole 20 mg PO DAILY Tobacco use date assessed: 05/22/23 Fall risk assessment: No Falls in past year Last assessed Fall Risk: 02/10/24 Dental Screening Dental Screen Date: 02/10/24 Did you have a dental visit in the last 12 months?: Yes Did you have a dental problem in the last 6 months where you did not have access to dental care?: No Was dental information given to patient?: Patient has dentist HPI Annual Exam HPI Details 68 year old female with past history of breast cancer left 2017, hypertension hypercholesterolemia GERD osteopenia coming in for annual exam. Patient was seen by [facility] speech and hearing found to have asymmetric hearing loss and tinnitus recommend ENT referral. Colonoscopy completed in 2021. Mammogram done yearly and breast exam this March with General surgery. Patient states she is feeling generally well however she does have difficulty sleeping 4-5 nights per week due to difficulty quieting her brain and will occasionally have night sweats 3-4 times per month. She also mentions over the last week or so she has had a red irritating rash on the bottom of her right foot. She has been using emollient cream to help with her symptoms which has reduced the redness however the rash is now peeling. [facility] History History of left breast cancer HTN (hypertension) Leukopenia Osteoporosis Vitamin D deficiency GERD (gastroesophageal reflux disease) Invasive ductal carcinoma of left breast Rosacea Mitral valve regurgitation Surgical History H/O colonoscopy History of esophagogastroduodenoscopy (EGD) History of lumpectomy of left breast (01/14/18) History of section Family History Father History of brain cancer History of bladder cancer Mother History of rheumatoid arthritis Family history of COPD (chronic obstructive pulmonary disease) History of asthma History of heart disease Paternal Grandmother History of ovarian cancer Paternal Uncle History of throat cancer Paternal Aunt History of colon cancer Maternal Grandmother History of rheumatoid arthritis Social History Housing: House Alcohol intake: current Alcohol intake frequency: holidays/special occasions only Patient Tobacco Use Status: Never used Tobacco Tobacco use type: Cigarette e-Cigarette/Vaping Use: Never Used Second Hand Smoke Exposure: No service: No Current occupational status: employed Current occupational exposures/hazards: No Cognitive needs: No Hearing needs: No Vision needs: No Questionnaire PHQ-9 Over the last 2 weeks, how often have you been bothered by any of the following problems? 1. Little interest or pleasure in doing things: not at all 2. Feeling down, depressed, or hopeless: not at all 3. Trouble falling or staying asleep, or sleeping too much: several days 4. Feeling tired or having little energy: several days 5. Poor appetite or overeating: not at all 6. Feeling bad about yourself - or that you are a failure or have let yourself or your family down: not at all 7. Trouble concentrating on things, such as reading the newspaper or watching television: not at all 8. Moving or speaking so slowly that other people could have noticed. Or the opposite - being so fidgety or restless that you have been moving around a lot more than usual: not at all 9. Thoughts that you would be better off or of hurting yourself in some wa y: not at all Total score: 2 Depression Screening Interpretation: Negative Depression Screening Done: Yes Source: Developed by Drs. Marco Smith, Judi Peña, Andrew Sanchez and colleagues, with an educational bryan from [employer]. Thrive Questionnaire Date Thrive assessed: 02/10/24 I am a: Patient What is your living situation today?: I have a steady place to live Within the past 12 months, did the food you bought not last and you didn't have the money to get more?: Never true Within the past 12 months, did you worry whether your food would run out before you got money to buy more?: Never true Do you have trouble paying for medicines?: No Do you have trouble getting transportation to medical appointments?: No Do you have trouble paying your heating and electricity bill?: No Do you have trouble taking care of your child, family member or friend?: No Do you have trouble with day-to-day activities such as bathing, preparing meals, shopping, managing finances, etc.?: No Are you currently unemployed and looking for a job?: No Are you interested in more education?: No Please select the resources that you would like help with: None Currently or been in a relationship where the following occur: No concerns reported THRIVE Score: 0 AUDIT C Alcohol Use Questionnaire (AUDIT-C) 1. How often do you have a drink containing alcohol?: 4 or more times a week 2. How many drinks containing alcohol do you have on a typical day when you are drinking?: 1 or 2 3. How often do you have six or more drinks on one occasion?: Never Total Score: 4 AYSE-7 AMB Questionnaire AYSE-7 Date AYSE - 7 assessed: 05/22/23 Feeling nervous, anxious, or on edge: 0 = Not at all Not being able to stop or control worryin = Not at all Worrying too much about different things: 0 = Not at all Trouble relaxin = Not at all Being so restless that it is hard to sit still: 0 = Not at all Becoming easily annoyed or irritable: 0 = Not at all Feeling afraid as if something awful might happen: 0 = Not at all Total AYSE-7 score (0-4 normal; 5-9 mild; 10-14 moderate; 15-21 severe): 0 Source: Developed by Drs. Marco Smith, Judi Peña, Andrew Sanchez and colleagues, with an educational bryan from [employer]. Review of Systems Const Denies body aches, Denies fatigue, Denies fever(s), Denies frequent falls, Denies headache(s) and Denies weakness Eyes Reports no additional complaints and Denies change in vision ENT Denies dysphagia, Denies dizziness, Denies facial pain, Denies headache(s), Denies nasal congestion and Denies odynophagia Card Denies chest pain, Denies syncope, Denies irregular heart rhythm, Denies leg edema, Denies lightheadedness and Denies dyspnea Resp Denies cough and Denies dyspnea GI Denies constipation, Denies dysphagia, Denies dyspepsia, Denies diarrhea, Denies nausea, Denies odynophagia and Denies vomiting Denies urinary frequency, Denies dysuria, Denies urinary hesitancy and Denies urinary urgency Musc Denies back pain and Denies myalgias Skin/Breast Details: Flaky rash on the bottom of the right foot Neuro Denies dizziness, Denies syncope, Denies frequent falls, Denies headache(s) and Denies weakness Psych Reports no additional complaints Endo Denies fatigue Physical exam (Primary Care) Vital Signs: Last Vital Signs Pulse 75 02/10/24 08:51 BP 130/72 02/10/24 08:51 Pulse Ox 99 02/10/24 08:51 Oxygen Delivery Method Room Air 02/10/24 08:51 BMI result Body Mass Index 28.2 Tobacco/Smoking Status: Tobacco use Status Tobacco use date assessed 05/22/23 02/10/24 08:56 Patient Tobacco Use Status Never used Tobacco 02/10/24 08:56 Tobacco use type Cigarette 02/10/24 08:56 e-Cigarette/Vaping Use Never Used 02/10/24 08:56 PHQ-9: PHQ-9 Score PHQ-9: Total score 2 02/10/24 09:11 Depression Screening Interpretation: Negative Thrive Assessment: Date of Thrive Assessment Date Thrive assessed 02/10/24 02/10/24 08:56 Currently or been in a relationship where the following occur: No concerns reported Const General: cooperative, healthy appearing, comfortable and no acute distress Orientation/consciousness: patient oriented x3 HENMT Head: Yes normocephalic Ears: hearing grossly normal bilaterally, external ears normal, TM's normal bilaterally and EAC's normal General nose exam: Normal external nose present Face and sinus: Yes normal facial exam and Yes sinuses nontender Mouth: Normal oral and palatal mucosa present and tongue normal Throat: Yes posterior oropharynx normal Eyes General: appearance normal, both eyes and all related structures Conjunctivae: conjunctivae normal Pupils: Equal, round and reactive pupils present EOM: EOMs intact bilaterally and No Nystagmus present Neck Neck: Yes normal visual inspection, Yes full ROM and Yes no lymphadenopathy Chest Chest palpation & inspection: normal inspection of the chest Resp Effort & Inspection: normal respiratory effort Auscultation: clear to auscultation bilaterally, no crackles, no rales, no rhonchi, no wheezes and breath sounds present Cardio Rate: regular rate Rhythm: regular rhythm Peripheral pulses: radial pulses present and dorsalis pedis present GI Inspection: Yes normal to inspection and No Abdominal wall edema Palpation (GI): Soft to palpation, not firm and nontender Auscultation: normal bowel sounds Rectal Exam - Female: deferred General: Yes no CVA tenderness Back/Spine/Pelvis Back: no CVA tenderness Skin Other: Nonerythematous, nontender, non weeping, peeling rash on the plantar aspect of the foot and great toe Neuro General: patient oriented x3 Cranial nerves: Yes Equal, round and reactive pupils present, Yes Midline tongue present, Yes Ability to bilaterally elevate shoulders present and No Nystagmus present Gait exam (Neuro): Normal gait present Extrem General: Yes normal to inspection, Yes full ROM, No no pedal edema and No edema Psych Speech and movement: Normal speech and movement present Affect: normal affect Insight: Good insight present (Psych) Judgement: Good judgement present (Psych) Assessment and Plan Assessment & Plan (1) Hearing difficulty: Code(s): H91.90 - Unspecified hearing loss, unspecified ear Plan: Patient was recently seen by speech and hearing and found to have asymmetrical hearing loss recommended referral to ear nose and throat which was placed today. (2) Osteopenia: Code(s): M85.80 - Other specified disorders of bone density and structure, unspecified site Plan: Advised increasing calcium daily and continue on vitamin D3. (3) Hypercholesterolemia: Code(s): E78.00 - Pure hypercholesterolemia, unspecified Plan: Avoid foods that are high in cholesterol such as red meat, fried foods, eggs and baked goods. Triglyceride goal of less than 150 and LDL goal of less than 100. Not currently on medical management. Ordered for updated blood work. (4) Annual physical exam: Code(s): Z00.00 - Encounter for general adult medical examination without abnormal findings Plan: Patient is up-to-date on all recommended routine screenings and vaccinations for her age. Did order for updated blood work at this time and will re-evaluate at next appointment. (5) Essential hypertension: Code(s): I10 - Essential (primary) hypertension Plan: Blood pressure at goal today 130/72 continue on lisinopril 10 mg. Continue to avoid salt intake and increase fluid intake and continue with healthy diet and regular exercise. (6) Invasive ductal carcinoma of left breast: Comment: June 2018, radiation, lumpectomy Dr. David 2018 anastrozole(March 2018) 7 year Code(s): C50.912 - Malignant neoplasm of unspecified site of left female breast Plan: Continue to follow with General surgery. (7) GERD (gastroesophageal reflux disease): Code(s): K21.9 - Gastro-esophageal reflux disease without esophagitis Plan: Avoid trigger foods such as citrus, tomato products, soda, caffeine, spicy foods and other foods that may be irritating to your stomach. Avoid laying flat 3-4 hours after eating and elevate the head of the bed 30 degrees to prevent acid from moving into the esophagus. Continue on omeprazole 20 mg. (8) Athlete's foot: Code(s): B35.3 - Tinea pedis Plan: Rash in the right foot is consistent with athlete's foot. We will treat with topical clotrimazole and if does not improve follow up. (9) Insomnia: Code(s): G47.00 - Insomnia, unspecified Plan: Patient does not want prescribed medication for this concern and we will use [id number] melatonin. Did advise patient that melatonin works best when taken regularly and not as needed. Plan This note was constructed using voice recognition software. While every effort has been made to ensure accuracy and electromechanical technologist, still areas may have been included sometimes these areas may affect the content or meeting of the given symptoms. Total time spent caring for the patient today was 30 minutes. This includes time spent before the visit reviewing the chart, time spent during the visit, and time spent after the visit and documentation. Orders: Orders Complete Blood Count Auto Diff Today Z00.00 - Encounter for general adult medical examination without abnormal findings Free T4 (Free Thyroxine) Today Z00.00 - Encounter for general adult medical examination without abnormal findings UA CC w/rflx Micro + Cult Today R35.89 - Other polyuria Hemoglobin A1c Today Z00.00 - Encounter for general adult medical examination without abnormal findings Comprehensive Met. Panel Today Z00.00 - Encounter for general adult medical examination without abnormal findings Lipid Panel Today Z00.00 - Encounter for general adult medical examination without abnormal findings TSH reflex Free T4 Today Z00.00 - Encounter for general adult medical examination without abnormal findings Vitamin B12 and Folate Today Z00.00 - Encounter for general adult medical examination without abnormal findings Vitamin D 25-OH (D2 and D3) Today Z00.00 - Encounter for general adult medical examination without abnormal findings Referrals Ear/Nose/Throat Referral H91.90 - Unspecified hearing loss, unspecified ear Medications: New clotrimazole 1% 1 appl topical BID 15 grams 0RF Coding Level of Care Code Est Pt Level 3 (76056) Est Pt Prev Care >65y(91046) Diagnoses Hearing difficulty H91.90 Osteopenia M85.80 Hypercholesterolemia E78.00 Annual physical exam Z00.00 Essential hypertension I10 Invasive ductal carcinoma of left breast C50.912 GERD (gastroesophageal reflux disease) K21.9 Athlete's foot B35.3 Insomnia G47.00
== END 2024-02-10 09:31 | disposition home or self-care (01) ==
PROVIDERS: PCP Internal Medicine
DX: Z00.00 Encounter for general adult medical examination without abnormal findings (principal); C50.912 Malignant neoplasm of unspecified site of left female breast; M85.80 Other specified disorders of bone density and structure, unspecified site; E78.00 Pure hypercholesterolemia, unspecified; I10 Essential (primary) hypertension; K21.9 Gastro-esophageal reflux disease without esophagitis; B35.3 Tinea pedis; G47.00 Insomnia, unspecified

== ENCOUNTER → 2024-02-10 08:48 | Outpatient (BNVA) | payer OTHER, SELFPAY | PROVIDERS: PCP Internal Medicine | DX: Z00.00 Encounter for general adult medical examination without abnormal findings (principal); H91.90 Unspecified hearing loss, unspecified ear; M85.80 Other specified disorders of bone density and structure, unspecified site; E78.00 Pure hypercholesterolemia, unspecified; I10 Essential (primary) hypertension; K21.9 Gastro-esophageal reflux disease without esophagitis; B35.3 Tinea pedis; G47.00 Insomnia, unspecified; C50.912 Malignant neoplasm of unspecified site of left female breast; Z79.811 Long term (current) use of aromatase inhibitors; Z79.899 Other long term (current) drug therapy | CPT/HCPCS: 96127 ==

== ENCOUNTER 2024-04-14 09:08 | Outpatient (AMB) | payer OTHER, SELFPAY ==
--- NOTE | 2024-04-14 09:11 | MHC.OFFVIS ---
Vital Signs 04/14/24 09:16 Height 5 ft 3.5 in Weight 167 lb BMI 29.1 BP 169/91 H Blood Pressure Location Lt brachial Position Sitting Pulse 73 Intake Visit Reasons: yearly breast exam Intake Note: Patient is seen in office for yearly breast exam after mammogram. Patient c/o: breast are tender around the nipple area, comes and goes and to the touch mm [facility]: 03/30/24 Sports Medicine Physician Required: No Accompanied by: Self / Same As Patient Allergies Sulfa (Sulfonamide Antibiotics) Allergy (Severe, Verified 04/14/24 09:15) HIVES; SWOLLEN LIPS, swelling, hives HPI Comments Details: 68-year-old female returning today following left breast lumpectomy and sentinel node biopsy of the left axilla on 01/14/2018. The pathology revealed invasive ductal ca 1.2 cm with 0/10 sentinel nodes positive for malignancy, ER+/IL+/Her2-oliva negative. (pT1a N0 (sn)(i-). She completed radiation therapy and is now taking Arimodex daily (planned for total of 7 years). She denies any new symptoms in the left breast and denies any swelling in the left arm. She continues to report an area of thickening in the upper outer quadrant extending into the axilla in the area of axillary breast tissue which comes and goes, both in the right and left breast.? Her most recent mammogram performed at [facility] on 03/30/2024 revealed no mammographic evidence of malignancy (BI-RADS 2). Yearly annual screening was recommended.? She denies any new breast symptoms today. ? [facility] Medical History History of left breast cancer HTN (hypertension) Leukopenia Osteoporosis Vitamin D deficiency GERD (gastroesophageal reflux disease) Invasive ductal carcinoma of left breast Rosacea Mitral valve regurgitation Surgical History H/O colonoscopy History of esophagogastroduodenoscopy (EGD) History of lumpectomy of left breast (01/14/18) History of section Family History Father History of brain cancer History of bladder cancer Mother History of rheumatoid arthritis Family history of COPD (chronic obstructive pulmonary disease) History of asthma History of heart disease Paternal Grandmother History of ovarian cancer Paternal Uncle History of throat cancer Paternal Aunt History of colon cancer Maternal Grandmother History of rheumatoid arthritis Social History Housing: House Alcohol intake: current Alcohol intake frequency: holidays/special occasions only Patient Tobacco Use Status: Never used Tobacco Tobacco use type: Cigarette e-Cigarette/Vaping Use: Never Used Second Hand Smoke Exposure: No service: No Current occupational status: employed Current occupational exposures/hazards: No Cognitive needs: No Hearing needs: No Vision needs: No Review of Systems Const Denies poor appetite and Denies weakness Eyes Denies no additional complaints ENT Reports Normal hearing present Card Denies chest pain, Denies syncope, Denies rapid heart rate and Denies dyspnea Resp Denies cough and Denies dyspnea GI Denies change in stool character, Reports constipation, Denies diarrhea, Denies nausea and Denies vomiting Denies urinary frequency, Denies difficulty voiding, Denies nipple discharge and Denies dysuria Skin/Breast Denies breast swelling, Denies breast skin changes, Denies breast pain, Denies breast mass and Denies nipple discharge Neuro Reports Normal hearing present, Denies syncope and Denies weakness Physical Exam Vital Signs: Last Vital Signs Pulse 73 04/14/24 09:16 BP 169/91 H 04/14/24 09:16 BMI result Body Mass Index 29.1 Const General: no acute distress and well developed Nutritional Appearance: well nourished Orientation/consciousness: patient oriented x3 Limitations: no limitations HEENT Head: Yes normocephalic and Yes atraumatic Chest Other: Right breast: No skin change, no nipple discharge, no palpable mass, no enlarged lymph nodes Left breast: Well-healed incision in the upper outer quadrant and axilla. No new skin change, no nipple discharge, no palpable mass, no enlarged lymph nodes. Chest/axillae images: 1. Well-healed incision left breast 12:00 o'clock location. Resp Effort & Inspection: normal respiratory effort, no audible wheezes, no cough and no respiratory distress GI Inspection: Yes normal to inspection Skin General skin exam: no rashes or lesions noted Neuro Other: Mobility Assessment:4 1. 3 meter assessment time (seconds) 2. Gait observations: Normal balance and gait General: patient oriented x3 Cranial nerves: Yes Normal hearing present Extrem General: Yes no clubbing, cyanosis or edema Assessment & Plan Assessment & Plan (1) Invasive ductal carcinoma of left breast: Comment: June 2018, radiation, lumpectomy Dr. David 2018 anastrozole(March 2018) 7 year Code(s): C50.912 - Malignant neoplasm of unspecified site of left female breast Category: Medical Plan 68-year-old female patient with a prior history of invasive ductal carcinoma of the left breast status post lumpectomy with needle localization, sentinel node biopsy. This was followed by radiation therapy and Arimidex which she continues on today. Examination today reveals no suspicious findings no evidence of recurrence disease. Her most recent mammogram dated 03/30/24 revealed no mammographic evidence of malignancy (BI-RADS 1). She should follow up in 1 year for routine breast examination, sooner p.r.n.. Coding Level of Care Code Est Pt Level 3 (99805) Diagnoses Invasive ductal carcinoma of left breast C50.912
[2024-04-14 09:16] VITALS: BP 169/91; PULSE 73; BMI 29.1
== END 2024-04-14 09:26 | disposition home or self-care (01) ==
PROVIDERS: PCP Internal Medicine; Visit Provider Surgery
DX: C50.912 Malignant neoplasm of unspecified site of left female breast (principal)
CPT/HCPCS: 99213

== ENCOUNTER 2024-05-18 08:48 | Outpatient (REF) | payer OTHER, SELFPAY ==
--- OUTSIDE RECORDS SUMMARY | 2024-05-18 08:51 | XMS_ITS | Patient Health Record ---
Author Organization [facility] Address [address] [place] [address] Care Team Providers Care Fire Prevention Chief Name Role Phone Chaitanya Hayes MD Primary Care Provider Marco Briseno [phone] ALLERGIES Allergen (clinical drug ingredient) Drug/Non Drug Allergy documented on EMR Reaction Allergy Type Onset Date Status Substance with sulfonamide structure and antibacterial mechanism of action (substance) Sulfa (uncoded) Unknown Allergy Active REASON FOR REFERRAL No Information MEDICATIONS Medication SIG (Take, Route, Fr equency, Duration) Notes Start Date End Date Status Tums prn Active Vitamin D Active Lisinopril 5 MG 1 tablet Orally Once a day for 30 day(s) Active Anastrozole 1 MG Oral for 90 A ctive Omeprazole prn Active IMMUNIZATIONS Vaccine Route Administration Date Status Comme nts Influenza Unknown 02/17/2021 Administered SOCIAL HISTORY Sex Assigned At : Social History Observation Description Sex Assigned At Unknown PROBLEMS Problem Type ICD Code Onset Dates Problem Status W/U Status Risk SNOMED Code Notes Problem Encounter for screening for malignant neoplasm of colon (Z12.11) Active confirmed Screening for malignant neoplasm of colon (636414461) Problem History of adenomatous polyp of colon (Z86.010) Active confirmed History of adenomatous polyp of colon (945467147) Problem Blood in stool (K92.1) Active confirmed 223667370 Problem Change in bowel function (R19.4) Active confirmed 56675755 Problem GERD (gastroesophageal reflux disease) (K21.9) Active confirmed Gastroesophagea l reflux disease (867046610) Problem Diverticulosis of sigmoid colon (K57.30) Active confirmed Diverticulosis of sigmoid colon (264379901) Problem Esophageal reflux disease (K21.9) Active confirmed Gastroesopha geal reflux disease (710954262) PLAN OF TREATMENT Future Test Test Name Order Date COLONOSCOPY 09/02/2015 UPPER GI ENDOSCOPY 10/31/2021 COLONOSCOPY 10/31/2021 Insurance Providers Payer Name Payer Address Payer Phone Subscriber Number Group Number Insured Name Patient Relationship to Insured Coverage Start Date Coverage End Date [facility] [address] [place] [phone] [id number] GENEVA MENDOZA Self - patient is the insured MEDICAL (GENERAL) HISTORY Medical History History ICD Code GERD---Upper endoscopy, 2001---neg for s ig. esophagitis nor Resendiz's Colonoscopy, 2000 and 03/2009--both neg. except for internal hemorrhoids Denies [place],DM,CVA,Lung disease,renal dise ase Acne rosacea Hypertension Left-sided breast cancer year 2018-lumpe ctomy/radiation Colonoscopy May of 2016 with a small tubular adenoma removed Surgical History Surgery Date(Month/Year) Lumpectomy breast left with lymph node d issection(negative)
[2024-05-18 09:10] LABS: MANUAL DIFF FLAG NO
[2024-05-18 09:34] LABS: Basophils Absolute Auto 0.1 X10*3/uL (0.0-0.2); Eosinophils Absolute Auto 0.2 X10*3/uL (0.0-0.4); Eosinophils Percent Auto 4.6 % (0-4); Hematocrit 41.3 % (37.0-47.0); Hemoglobin 13.8 g/dl (12.0-16.0); Imm Gran Abs Auto 0.03 X10*3/uL (0.00-0.03); Imm Gran Pct Auto 0.6 % (0.0-0.4); Lymphocytes Absolute Auto 1.5 X10*3/uL (1.2-4.9); Lymphocytes Percent Auto 30.6 % (20-40); Mean Corpuscular HGB Conc 33.4 g/dl (31.0-35.0); Mean Corpuscular Volume 92.8 fL (80.0-98.0); Mean Platelet Volume 10.9 fL (9.4-12.3); Monocytes Absolute Auto 0.6 X10*3/uL (0.1-1.2); Monocytes Percent Auto 12.3 % (2-11); Neutrophils Absolute Auto 2.5 x10*3/uL (2.0-8.3); Neutrophils Percent Auto 50.9 % (45-73); Platelet Count 284 X10*3/uL (160-400); Red Blood Count 4.45 X10*6/uL (4.20-5.50); Red Cell Distribution Width 13.1 % (11.0-16.0); White Blood Count 4.8 X10*3/uL (4.8-10.8)
[2024-05-18 09:40] LABS: Estimated Average Glucose 108 mg/dL; Hemoglobin A1C 123.0018 umol/L; Hemoglobin A1c % 5.4 % (<6.0); Total Hemoglobin (HGBA1C) 3482.8366 umol/L
[2024-05-18 10:22] LABS: Albumin Level 4.1 g/dL (3.5-5.0); Alkaline Phosphatase 69 U/L (39-117); Anion Gap 12 (12-20); Aspartate Amino Transferase 33 U/L (5-31); Bilirubin Total 0.6 mg/dL (0.0-1.0); Blood Urea Nitrogen 14 mg/dL (9-16); Calcium 9.5 mg/dL (8.4-10.2); Carbon Dioxide 26 mmol/L (22-29); Chloride 110 mmol/L (96-108); Cholesterol 299 mg/dL (<200); Estimated Glomerular Filt Rate > 60; Glucose Random 97 mg/dL (60-115); HDL Cholesterol 82 mg/dL (>40); LDL Cholesterol Calculated 195 mg/dL (<100); Potassium 4.2 mmol/L (3.3-5.1); Sodium 144 mmol/L (135-145); Total Protein 7.2 g/dL (6.5-8.0); Triglycerides 112 mg/dL (<150)
[2024-05-18 10:31] LABS: Alanine Aminotransferase 46 U/L (0-31); Free T4 (Free Thyroxine) 0.97 ng/dL (0.71-1.85); TSH reflex Free T4 1.09 uIU/mL (0.32-4.0)
[2024-05-18 10:32] LABS: Folate 13.6 ng/mL (> or = 4.0); Vitamin B12 233 pg/mL (200-900)
[2024-05-22 14:04] LABS: Vitamin D 25-OH, D2 <4 ng/mL; Vitamin D 25-OH, D3 24 ng/mL; Vitamin D 25-OH, Total 24 ng/mL (30-100)
== END 2024-05-18 08:49 | disposition home or self-care (01) ==
LOC: HO.LAB 08:48
PROVIDERS: PCP Internal Medicine
DX: Z00.00 Encounter for general adult medical examination without abnormal findings (principal); R35.89 Other polyuria; Z13.1 Encounter for screening for diabetes mellitus; Z13.29 Encounter for screening for other suspected endocrine disorder; Z13.220 Encounter for screening for lipoid disorders
CPT/HCPCS: 36415; 80053; 80061; 82306; 82607; 82746; 83036; 84439; 84443; 85025

== ENCOUNTER 2024-05-25 08:17 | Outpatient (AMB) | payer OTHER, SELFPAY ==
--- NOTE | 2024-05-25 08:23 | MHC.PC.OV ---
Vital Signs 05/25/24 08:24 Height 5 ft 3.5 in Weight 167 lb 6 oz BMI 29.2 BP 126/78 Blood Pressure Location Lt brachial Position Sitting Pulse 68 Pulse Source Pulse Oximeter Pulse Oximetry (%) 98 Oxygen Delivery Method Room Air Intake Visit Reasons: f/u cholesterol Traffic Signal Repairer Required: No Accompanied by: Self / Same As Patient Allergies Sulfa (Sulfonamide Antibiotics) Allergy (Severe, Verified 05/25/24 08:53) HIVES; SWOLLEN LIPS, swelling, hives Medication List - Last Reconciled 05/25/24 by Shell Garcia PA-C anastrozole 1 mg PO DAILY azelaic acid 15% (Finacea) 1 appl topical BID cholecalciferol (vitamin D3) 25 mcg PO DAILY clotrimazole 1% 1 appl topical BID lisinopril 10 mg PO DAILY omeprazole 20 mg PO DAILY Tobacco use date assessed: 05/25/24 Fall risk assessment: No Falls in past year Last assessed Fall Risk: 05/25/24 Dental Screening Dental Screen Date: 05/25/24 Did you have a dental visit in the last 12 months?: Yes Did you have a dental problem in the last 6 months where you did not have access to dental care?: No Was dental information given to patient?: Patient has dentist HPI f/u cholesterol HPI Details 69 year old female with past history of breast cancer left 2017, hypertension hypercholesterolemia GERD osteopenia coming in for follow up on cholesterol. In review of the notes, patient was seen by General surgery 04/14/2024 advised to follow up yearly for routine breast exams. Patient tells us today she completed her COVID and RSV vaccination in the fall of last year. She has no acute concerns today. She has been working on diet and lifestyle changes for her cholesterol. [facility] Medical History History of left breast cancer HTN (hypertension) Leukopenia Osteoporosis Vitamin D deficiency GERD (gastroesophageal reflux disease) Invasive ductal carcinoma of left breast Rosacea Mitral valve regurgitation Surgical History H/O colonoscopy History of esophagogastroduodenoscopy (EGD) History of lumpectomy of left breast (01/14/18) History of section Family History Father History of brain cancer History of bladder cancer Mother History of rheumatoid arthritis Family history of COPD (chronic obstructive pulmonary disease) History of asthma History of heart disease Paternal Grandmother History of ovarian cancer Paternal Uncle History of throat cancer Paternal Aunt History of colon cancer Maternal Grandmother History of rheumatoid arthritis Social History Housing: House Alcohol intake: current Alcohol intake frequency: holidays/special occasions only Patient Tobacco Use Status: Never used Tobacco Tobacco use type: Cigarette e-Cigarette/Vaping Use: Never Used Second Hand Smoke Exposure: No service: No Current occupational status: employed Current occupational exposures/hazards: No Cognitive needs: No Hearing needs: No Vision needs: No Questionnaire PHQ-9 Over the last 2 weeks, how often have you been bothered by any of the following problems? 1. Little interest or pleasure in doing things: not at all 2. Feeling down, depressed, or hopeless: not at all 3. Trouble falling or staying asleep, or sleeping too much: several days 4. Feeling tired or having little energy: several days 5. Poor appetite or overeating: not at all 6. Feeling bad about yourself - or that you are a failure or have let yourself or your family down: not at all 7. Trouble concentrating on things, such as reading the newspaper or watching television: not at all 8. Moving or speaking so slowly that other people could have noticed. Or the opposite - being so fidgety or restless that you have been moving around a lot more than usual: not at all 9. Thoughts that you would be better off or of hurting yourself in some way: not at all Total score: 2 Depression Screening Interpretation: Negative Depression Screening Done: Yes Source: Developed by Drs. Marco Smith, Judi Peña, Andrew Sanchez and colleagues, with an educational bryan from [employer] Thrive Questionnaire Date Thrive assessed: 05/25/24 I am a: Patient What is your living situation today?: I have a steady place to live Within the past 12 months, did the food you bought not last and you didn't have the money to get more?: Never true Within the past 12 months, did you worry whether your food would run out before you got money to buy more?: Never true Do you have trouble paying for medicines?: No Do you have trouble getting transportation to medical appointments?: No Do you have trouble paying your heating and electricity bill?: No Do you have trouble taking care of your child, family member or friend?: No Do you have trouble with day-to-day activities such as bathing, preparing meals, shopping, managing finances, etc.?: No Are you currently unemployed and looking for a job?: No Are you interested in more education?: No Please select the resources that you would like help with: None Currently or been in a relationship where the following occur: No concerns reported THRIVE Score: 0 AUDIT C Alcohol Use Questionnaire (AUDIT-C) 1. How often do you have a drink containing alcohol?: Monthly or less 2. How many drinks containing alcohol do you have on a typical day when you are drinking?: 1 or 2 3. How often do you have six or more drinks on one occasion?: Never Total Score: 1 AYSE-7 AMB Questionnaire AYSE-7 Date AYSE - 7 assessed: 05/25/24 Feeling nervous, anxious, or on edge: 0 = Not at all Not being able to stop or control worryin = Not at all Worrying too much about different things: 0 = Not at all Trouble relaxin = Not at all Being so restless that it is hard to sit still: 0 = Not at all Becoming easily annoyed or irritable: 0 = Not at all Feeling afraid as if something awful might happen: 0 = Not at all Total AYSE-7 score (0-4 normal; 5-9 mild; 10-14 moderate; 15-21 severe): 0 Source: Developed by Drs. Marco Smith, Judi Peña, Andrew Sanchez and colleagues, with an educational bryan from [employer] Review of Systems Const Denies body aches, Denies chills, Denies fever(s), Denies headache(s) and Denies poor appetite Eyes Reports no additional complaints ENT Denies dizziness and Denies headache(s) Card Denies chest pain, Denies syncope, Denies edema, Denies irregular heart rhythm, Denies lightheadedness and Denies dyspnea Resp Denies cough and Denies dyspnea GI Denies abdominal pain, Denies constipation, Denies diarrhea, Denies nausea and Denies vomiting Reports no additional complaints Musc Reports no additional complaints and Denies abnormal gait Skin/Breast Reports system reviewed and no additional complaints, except as documented Neuro Denies abnormal gait, Denies dizziness, Denies syncope and Denies headache(s) Psych Reports no additional complaints Physical exam (Primary Care) Vital Signs: Last Vital Signs Pulse 68 05/25/24 08:24 BP 126/78 05/25/24 08:24 Pulse Ox 98 05/25/24 08:24 Oxygen Delivery Method Room Air 05/25/24 08:24 BMI result Body Mass Index 29.2 Tobacco/Smoking Status: Tobacco use Status Tobacco use date assessed 05/25/24 05/25/24 08:27 Patient Tobacco Use Status Never used Tobacco 05/25/24 08:27 Tobacco use type Cigarette 05/25/24 08:27 e-Cigarette/Vaping Use Never Used 05/25/24 08:27 PHQ-9: PHQ-9 Score PHQ-9: Total score 2 05/25/24 08:27 Depression Screening Interpretation: Negative Thrive Assessment: Date of Thrive Assessment Date Thrive assessed 05/25/24 05/25/24 08:27 Currently or been in a relationship where the following occur: No concerns reported Const General: cooperative, healthy appearing, comfortable and no acute distress Orientation/consciousness: patient oriented x3 HENMT Head: Yes normocephalic Ears: hearing grossly normal bilaterally General nose exam: Normal external nose present Eyes General: appearance normal, both eyes and all related structures Conjunctivae: conjunctivae normal Neck Neck: Yes full ROM and Yes no lymphadenopathy Resp Effort & Inspection: normal respiratory effort Auscultation: clear to auscultation bilaterally, no crackles, no rales, no rhonchi and no wheezes Cardio Rate: regular rate Rhythm: regular rhythm Skin General skin exam: no rashes or lesions noted Neuro General: patient oriented x3 Gait exam (Neuro): Normal gait present Extrem General: Yes normal to inspection, Yes full ROM and No edema Psych Affect: normal affect Attitude: cooperative Insight: Good insight present (Psych) Judgement: Good judgement present (Psych) Coding Level of Care Code Est Pt Level 4 (84148) Diagnoses Essential hypertension I10 Invasive ductal carcinoma of left breast C50.912 GERD (gastroesophageal reflux disease) K21.9 Hypercholesterolemia E78.00 Elevated LFTs R79.89 Assessment & Plan Assessment & Plan (1) Essential hypertension: Code(s): I10 - Essential (primary) hypertension Category: Medical Plan: Continue on current blood pressure medication. Avoid salt intake and encourage healthy diet and regular exercise. Patient has been monitoring blood pressure at home have been within normal limits. (2) Invasive ductal carcinoma of left breast: Comment: June 2018, radiation, lumpectomy Dr. David 2018 anastrozole(March 2018) 7 year Code(s): C50.912 - Malignant neoplasm of unspecified site of left female breast Category: Medical Plan: Recently seen by Dr. David advised to follow up yearly for breast exams. (3) GERD (gastroesophageal reflux disease): Code(s): K21.9 - Gastro-esophageal reflux disease without esophagitis Category: Medical Plan: Avoid trigger foods such as citrus, tomato products, soda, caffeine, spicy foods and other foods that may be irritating to your stomach. Avoid laying flat 3-4 hours after eating and elevate the head of the bed 30 degrees to prevent acid from moving into the esophagus. (4) Hypercholesterolemia: Code(s): E78.00 - Pure hypercholesterolemia, unspecified Category: Medical Plan: Avoid foods that are high in cholesterol such as red meat, fried foods, eggs and baked goods. Triglyceride goal of less than 150 and LDL goal of less than 130. LDL on last labs was 195 recommending statin as she has elevated ASCVD risk recommending moderate to high intensity statin. We will start on atorvastatin 10 mg and redraw labs in 3 months. (5) Elevated LFTs: Code(s): R79.89 - Other specified abnormal findings of blood chemistry Category: Medical Plan: Encouraged healthy diet and regular exercise. Patient states she has a diagnosis of fatty liver disease in the past. We will redraw labs in 3 months and can consider abdominal ultrasound if remains elevated. Plan This note was constructed using voice recognition software. While every effort has been made to ensure accuracy and insurance sales specialist, still areas may have been included sometimes these areas may affect the content or meeting of the given symptoms. Total time spent caring for the patient today was twenty minutes. This includes time spent before the visit reviewing the chart, time spent during the visit, and time spent after the visit and documentation. Orders: Orders Liver Panel 3 Months R79.89 - Other specified abnormal findings of blood chemistry Lipid Panel 3 Months E78.00 - Pure hypercholesterolemia, unspecified Medications: New atorvastatin 10 mg PO BEDTIME 90 tabs 3RF
[2024-05-25 08:24] VITALS: BP 126/78; PULSE 68; O2SAT 98; BMI 29.2
--- OUTSIDE RECORDS SUMMARY | 2024-05-25 08:33 | XMS_ITS | Patient Health Record ---
Author Organization [facility] Address [address] [place] [address] Care Team Providers Care Decal Decorator Name Role Phone Chaitanya Hayes MD Primary Care Provider Marco Briseno [phone] ALLERGIES Allergen (clinical drug ingredient) Drug/Non Drug [...] confirmed Screening for malignant neoplasm of colon (480149339) Problem History of adenomatous polyp of colon (Z86.010) Active confirmed History of adenomatous polyp of colon (731728633) Problem Blood in stool (K92.1) Active confirmed [id number] Problem Change in bowel function (R19.4) Active confirmed 13435484 Problem GERD (gastroesophageal reflux disease) (K21.9) Active confirmed Gastroesophagea l reflux disease (673620904) Problem Diverticulosis of sigmoid colon (K57.30) Active confirmed Diverticulosis of sigmoid colon (805118918) Problem Esophageal reflux disease (K21.9) Active confirmed Gastroesopha geal reflux disease (923885189) PLAN OF TREATMENT Future Test Test Name Order Date COLONOSCOPY 09/02/2015 UPPER GI ENDOSCOPY 10/31/2021 COLONOSCOPY 10/31/2021 Insurance Providers Payer Name Payer Address Payer Phone Subscriber Number Group Number Insured Name Patient Relationship to Insured Coverage Start Date Coverage End Date [facility] [address] [place] [phone] [id number] GENEVA MENDOZA Self - patient is the insured MEDICAL (GENERAL) HISTORY Medical History History ICD Code GERD---Upper endoscopy, 2001---neg for s ig. esophagitis nor Resendiz's Colonoscopy, 2000 and 03/2009--both neg. except for internal hemorrhoids Denies [place],DM,CVA,Lung disease,renal dise ase Acne rosacea Hypertension Left-sided breast cancer year 2018-lumpe ctomy/radiation Colonoscopy May of 2016 with a small tubular adenoma removed Surgical History Surgery Date(Month/Year) Lumpectomy breast left with lymph node d issection(negative)
== END 2024-05-25 09:13 | disposition home or self-care (01) ==
PROVIDERS: PCP Internal Medicine
DX: I10 Essential (primary) hypertension (principal); C50.912 Malignant neoplasm of unspecified site of left female breast; K21.9 Gastro-esophageal reflux disease without esophagitis; E78.00 Pure hypercholesterolemia, unspecified; R79.89 Other specified abnormal findings of blood chemistry

== ENCOUNTER 2024-08-17 09:12 | Outpatient (REF) | payer OTHER, SELFPAY ==
[2024-08-17 11:01] LABS: Alanine Aminotransferase 27 U/L (0-31); Albumin Level 4.2 g/dL (3.5-5.0); Alkaline Phosphatase 53 U/L (39-117); Aspartate Amino Transferase 25 U/L (5-31); Bilirubin Direct 0.2 mg/dL (0.0-0.5); Bilirubin Total 0.7 mg/dL (0.0-1.0); Cholesterol 180 mg/dL (<200); HDL Cholesterol 84 mg/dL (>40); LDL Cholesterol Calculated 84 mg/dL (<100); Total Protein 7.1 g/dL (6.5-8.0); Triglycerides 60 mg/dL (<150)
== END 2024-08-17 09:13 | disposition home or self-care (01) ==
LOC: HO.LAB 09:12
PROVIDERS: PCP Internal Medicine
DX: E78.00 Pure hypercholesterolemia, unspecified (principal); R79.89 Other specified abnormal findings of blood chemistry
CPT/HCPCS: 36415; 80061; 80076

== ENCOUNTER 2024-08-24 07:48 | Outpatient (AMB) | payer OTHER, SELFPAY ==
[2024-08-24 08:08] VITALS: BP 130/78; PULSE 66; O2SAT 98; BMI 26.8
--- NOTE | 2024-08-24 08:08 | MHC.PC.OV ---
Vital Signs 08/24/24 08:08 Height 5 ft 3.5 in Weight 154 lb BMI 26.8 BP 130/78 Blood Pressure Location Lt brachial Position Sitting Pulse 66 Pulse Source Pulse Oximeter Pulse Oximetry (%) 98 Oxygen Delivery Method Room Air Intake Visit Reasons: 3 Month F/U Allergies Sulfa (Sulfonamide Antibiotics) Allergy (Severe, Verified 08/24/24 08:12) HIVES; SWOLLEN LIPS, swelling, hives Medication List - Last Reconciled 08/24/24 by Shell Garcia PA-C anastrozole 1 mg PO DAILY atorvastatin 10 mg PO BEDTIME azelaic acid 15% (Finacea) 1 appl topical BID betamethasone dipropionate 0.05% 1 appl topical BID PRN cholecalciferol (vitamin D3) 25 mcg PO DAILY clotrimazole 1% 1 appl topical BID lisinopril 10 mg PO DAILY omeprazole 20 mg PO DAILY Tobacco use date assessed: 08/24/24 Fall risk assessment: No Falls in past year Last assessed Fall Risk: 08/24/24 Dental Screening Dental Screen Date: 05/25/24 HPI 3 Month F/U HPI Details 69-year-old female with past medical history of breast cancer left 2017, hypertension, hypercholesterolemia, GERD, osteopenia last seen 05/2024 coming in for follow up on cholesterol.?In review of the notes, patient was seen by [facility] for rash 07/30/2024 diagnosed with nummular eczema recommend topical emollients and betamethasone as needed. Reviewing patient's lab work LDL decreased from 195 to 84 after initiation of atorvastatin 10. Patient is noted intentional 13 lb weight loss since last visit. She has been working on dietary and lifestyle modification. She reports the rash appears on her chest and has been managed with a prescribed steroid cream. Rash is resolving. She reports right knee pain since June, with an X-ray diagnosing a bone spur. The pain occurs primarily when walking and at night, though not during skiing with a brace. [facility] Medical History History of left breast cancer HTN (hypertension) Leukopenia Osteoporosis Vitamin D deficiency GERD (gastroesophageal reflux disease) Invasive ductal carcinoma of left breast Rosacea Mitral valve regurgitation Surgical History H/O colonoscopy History of esophagogastroduodenoscopy (EGD) History of lumpectomy of left breast (01/14/18) History of section Family History Father History of brain cancer History of bladder cancer Mother History of rheumatoid arthritis Family history of COPD (chronic obstructive pulmonary disease) History of asthma History of heart disease Paternal Grandmother History of ovarian cancer Paternal Uncle History of throat cancer Paternal Aunt History of colon cancer Maternal Grandmother History of rheumatoid arthritis Social History Housing: House Alcohol intake: current Alcohol intake frequency: holidays/special occasions only Patient Tobacco Use Status: Never used Tobacco Tobacco use type: Cigarette e-Cigarette/Vaping Use: Never Used Second Hand Smoke Exposure: No service: No Current occupational status: employed Current occupational exposures/hazards: No Cognitive needs: No Hearing needs: No Vision needs: No Questionnaire PHQ-9 Over the last 2 weeks, how often have you been bothered by any of the following problems? 1. Little interest or pleasure in doing things: not at all 2. Feeling down, depressed, or hopeless: not at all 3. Trouble falling or staying asleep, or sleeping too much: several days 4. Feeling tired or having little energy: several days 5. Poor appetite or overeating: not at all 6. Feeling bad about yourself - or that you are a failure or have let yourself or your family down: not at all 7. Trouble concentrating on things, such as reading the newspaper or watching television: not at all 8. Moving or speaking so slowly that other people could have noticed. Or the opposite - being so fidgety or restless that you have been moving around a lot more than usual: not at all 9. Thoughts that you would be better off or of hurting yourself in some way: not at all Total score: 2 Depression Screening Interpretation: Negative Depression Screening Done: Yes Source: Developed by Drs. Marco Smith, Judi Peña, Andrew Sanchez and colleagues, with an educational bryan from [employer]. Thrive Questionnaire Date Thrive assessed: 05/25/24 AUDIT C Alcohol Use Questionnaire (AUDIT-C) 1. How often do you have a drink containing alcohol?: Monthly or less 2. How many drinks containing alcohol do you have on a typical day when you are drinking?: 1 or 2 3. How often do you have six or more drinks on one occasion?: Never Total Score: 1 AYSE-7 AMB Questionnaire AYSE-7 Date AYSE - 7 assessed: 05/25/24 Source: Developed by Drs. Marco Smith, Judi Peña, Andrew Sanchez and colleagues, with an educational bryan from [employer]. Review of Systems Const Denies body aches, Denies chills, Denies fever(s) and Denies poor appetite Eyes Reports no additional complaints Card Denies chest pain, Denies lightheadedness and Denies dyspnea Resp Denies dyspnea GI Denies abdominal pain, Denies nausea and Denies vomiting Reports no additional complaints Musc Details: Right knee pain Skin/Breast Reports system reviewed and no additional complaints, except as documented Psych Reports no additional complaints Physical exam (Primary Care) Vital Signs: Oxygen Delivery Method Room Air 08/24/24 08:08 Tobacco/Smoking Status: Tobacco use Status Tobacco use date assessed 05/25/24 05/25/24 08:27 Patient Tobacco Use Status Never used Tobacco 05/25/24 08:27 Tobacco use type Cigarette 05/25/24 08:27 e-Cigarette/Vaping Use Never Used 05/25/24 08:27 Depression Screening Interpretation: Negative Thrive Assessment: Date of Thrive Assessment Date Thrive assessed 05/25/24 05/25/24 08:27 Const General: cooperative, healthy appearing, comfortable and no acute distress Orientation/consciousness: patient oriented x3 HENMT Head: Yes normocephalic Ears: hearing grossly normal bilaterally General nose exam: Normal external nose present Eyes General: appearance normal, both eyes and all related structures Conjunctivae: conjunctivae normal Neck Neck: Yes full ROM and Yes no lymphadenopathy Resp Effort & Inspection: normal respiratory effort Auscultation: clear to auscultation bilaterally, no crackles, no rales, no rhonchi and no wheezes Cardio Rate: regular rate Rhythm: regular rhythm Skin General skin exam: no rashes or lesions noted Neuro General: patient oriented x3 Gait exam (Neuro): Normal gait present Extrem Other: Right knee tenderness to palpation or medial joint lines General: Yes normal to inspection, Yes full ROM and No edema Psych Affect: normal affect Attitude: cooperative Insight: Good insight present (Psych) Judgement: Good judgement present (Psych) Coding Level of Care Code Est Pt Level 3 (99829) Diagnoses Elevated LFTs R79.89 Hypercholesterolemia E78.00 Essential hypertension I10 GERD (gastroesophageal reflux disease) K21.9 Nummular eczema L30.0 Right knee pain M25.561 Assessment & Plan Assessment & Plan (1) Elevated LFTs: Code(s): R79.89 - Other specified abnormal findings of blood chemistry Category: Medical Plan: And mostly lab work LFTs have normalized. Healthy diet and regular exercise is encouraged. (2) Hypercholesterolemia: Code(s): E78.00 - Pure hypercholesterolemia, unspecified Category: Medical Plan: Avoid foods that are high in cholesterol such as red meat, fried foods, eggs and baked goods. Triglyceride goal of less than 150 and LDL goal of less than 100. Continue on atorvastatin 10 (3) Essential hypertension: Code(s): I10 - Essential (primary) hypertension Category: Medical Plan: Continue on current blood pressure medication. Avoid salt intake and encourage healthy diet and regular exercise. (4) GERD (gastroesophageal reflux disease): Code(s): K21.9 - Gastro-esophageal reflux disease without esophagitis Category: Medical Plan: Avoid trigger foods such as citrus, tomato products, soda, caffeine, spicy foods and other foods that may be irritating to your stomach. Avoid laying flat 3-4 hours after eating and elevate the head of the bed 30 degrees to prevent acid from moving into the esophagus. Continue on omeprazole 20 (5) Nummular eczema: Code(s): L30.0 - Nummular dermatitis Category: Medical Plan: Patient was recently seen by [facility] for new onset of body rash. Diagnosed with nummular eczema advised to use topical emollients and topical betamethasone. Continue to follow up with Dermatology (6) Right knee pain: Code(s): M25.561 - Pain in right knee Category: Medical Plan: Patient complaining of right knee pain in the medial aspect of the knee primarily while walking and at night. Previous x-ray by urgent care was negative. Offered physical therapy evaluation which was declined. Advised to use heating pad, Tylenol and ibuprofen as needed. May also use compression brace as needed for support and comfort. Plan This note was constructed using voice recognition software. While every effort has been made to ensure accuracy and heeler machine, still areas may have been included sometimes these areas may affect the content or meeting of the given symptoms. Total time spent caring for the patient today was 20 minutes. This includes time spent before the visit reviewing the chart, time spent during the visit, and time spent after the visit and documentation. Patient was informed and verbally consented to the use of an ambient scribe for clinic note documentation during this visit. Orders: Orders MMR IgG Measles Mumps Rubella Today Z00.00 - Encounter for general adult medical examination without abnormal findings
== END 2024-08-24 08:29 | disposition home or self-care (01) ==
LOC: HO.HMCH 07:49
PROVIDERS: PCP Internal Medicine
DX: R79.89 Other specified abnormal findings of blood chemistry (principal); E78.00 Pure hypercholesterolemia, unspecified; I10 Essential (primary) hypertension; K21.9 Gastro-esophageal reflux disease without esophagitis; L30.0 Nummular dermatitis; M25.561 Pain in right knee

== ENCOUNTER → 2024-08-24 07:48 | Outpatient (BNVA) | payer OTHER, SELFPAY | PROVIDERS: PCP Internal Medicine | DX: Z13.89 Encounter for screening for other disorder (principal) ==

== ENCOUNTER 2024-08-26 14:12 | Outpatient (REF) | payer OTHER, SELFPAY ==
[2024-08-27 09:19] LABS: Mumps Virus IgG Antibody >300.00 AU/mL; Rubeola IgG (Measles) >300.00 AU/mL
== END 2024-08-26 14:13 | disposition home or self-care (01) ==
LOC: HO.LAB 14:12
PROVIDERS: PCP Internal Medicine
DX: Z00.00 Encounter for general adult medical examination without abnormal findings (principal)
CPT/HCPCS: 36415; 86735; 86762; 86765

== ENCOUNTER 2025-02-22 08:51 | Outpatient (AMB) | payer MEDICARE, SELFPAY ==
[2025-02-22 08:54] VITALS: BP 144/92; PULSE 79; TEMP 36.1; O2SAT 99; BMI 27.5
--- NOTE | 2025-02-22 08:54 | AM.OFFVISMDC ---
Intake Vital Signs 02/22/25 08:54 02/22/25 09:07 Height 5 ft 3.5 in Weight 158 lb BMI 27.5 BP 144/92 H 140/80 H Blood Pressure Location Lt brachial Lt brachial Position Sitting Sitting Pulse 79 Pulse Source Pulse Oximeter Temp 97.0 F Temp Source Temporal Artery Scan Pulse Oximetry (%) 99 Oxygen Delivery Method Room Air Intake Visit Reasons: AWV Allergies Sulfa (Sulfonamide Antibiotics) Allergy (Severe, Verified 02/22/25 08:57) HIVES; SWOLLEN LIPS, swelling, hives Medication List - Last Reconciled 02/22/25 by Chaitanya Hayes MD anastrozole 1 mg PO DAILY atorvastatin 10 mg PO BEDTIME azelaic acid 15% (Finacea) 1 appl topical BID betamethasone dipropionate 0.05% 1 appl topical BID PRN cholecalciferol (vitamin D3) 25 mcg PO DAILY clotrimazole 1% 1 appl topical BID lisinopril 20 mg PO DAILY omeprazole 20 mg PO DAILY HPI AWV HPI Details [place] [facility] dermatology, Dr. David breast surgeon BM see the [facility] Hematology-Oncology gastroenterology Dr. Lynch. L ear hearing loss [facility] Medical History History of left breast cancer HTN (hypertension) Leukopenia Osteoporosis Vitamin D deficiency GERD (gastroesophageal reflux disease) Invasive ductal carcinoma of left breast Rosacea Mitral valve regurgitation Surgical History H/O colonoscopy History of esophagogastroduodenoscopy (EGD) History of lumpectomy of left breast (01/14/18) History of section Family History Father History of brain cancer History of bladder cancer Mother History of rheumatoid arthritis Family history of COPD (chronic obstructive pulmonary disease) History of asthma History of heart disease Paternal Grandmother History of ovarian cancer Paternal Uncle History of throat cancer Paternal Aunt History of colon cancer Maternal Grandmother History of rheumatoid arthritis Social History (Updated 02/22/25 @ 09:12 by Chaitanya Hayes MD) Housing: House Alcohol intake: current Alcohol intake frequency: holidays/special occasions only Comment: 2-3 x a week 1-2 glasses of wine Patient Tobacco Use Status: Never used Tobacco Tobacco use type: Cigarette e-Cigarette/Vaping Use: Never Used Second Hand Smoke Exposure: No service: No Current occupational status: employed Current occupational exposures/hazards: No Cognitive needs: No Hearing needs: No Vision needs: No Questionnaire Medicare Wellness Checkup [age] 65-71 What gender do you identify with?: female During the past 4 weeks, how much have you been bothered by emotional problems such as feeling anxious, depressed, irritable, sad or downhearted, and blue?: not at all During the past 4 weeks, has your physical & emotional health limited your social activities with family, friends, neighbors, or groups?: not at all During the past 4 weeks, how much bodily pain have you generally had?: mild pain During the past 4 weeks, was someone available to help you if you needed & wanted help?: yes, as much as I wanted During the past 4 weeks, what was the hardest physical activity you could do for at least 2 minutes?: heavy Can you get to places out of walking distance without help? (For eg., can you travel alone on buses, taxis or drive your car?): Yes Can you go shopping for groceries or clothes without someone's help?: Yes Can you prepare your own meals?: Yes Can you do your housework without help?: Yes Because of any health problems, do you need the help of another person with your personal care needs such as eating, bathing, dressing or getting around the house?: No Can you handle your own money without help?: Yes During the past 4 weeks, how would you rate your health in general?: good During the past 4 weeks how have things been going for you?: pretty well Are you having difficulties driving your car?: no Do you always fasten your seat belt when you are in a car?: yes, usually During past 4 weeks, have you been bothered by the following: never: Falling or dizzy when standing up, Sexual problems?, Trouble eating well?, Teeth or denture problems? and Problems using the telephone? and sometimes: Tiredness or fatigue? Have you fallen 2 or more times in the past year?: No Are you afraid of falling?: No Are you a smoker?: no During the past 4 weeks, how many drinks of wine, beer, or other alcoholic beverages did you have?: 2-5 drinks per week Do you exercise for about 20 minutes 3 or more times a week?: yes, all the time Have you been given information to help with the following?: no: Hazards in your house that might hurt you? and no: Keeping track of your medications? How often do you have trouble taking medicines the way you have been told to take them?: I always take medicine as prescribed How confident are you that you can control & manage most of your health problems?: very confident What is your race?: White PHQ-9 Over the last 2 weeks, how often have you been bothered by any of the following problems? 1. Little interest or pleasure in doing things: not at all 2. Feeling down, depressed, or hopeless: not at all 3. Trouble falling or staying asleep, or sleeping too much: several days 4. Feeling tired or having little energy: not at all 5. Poor appetite or overeating: not at all 6. Feeling bad about yourself - or that you are a failure or have let yourself or your family down: not at all 7. Trouble concentrating on things, such as reading the newspaper or watching television: not at all 8. Moving or speaking so slowly that other people could have noticed. Or the opposite - being so fidgety or restless that you have been moving around a lot more than usual: not at all 9. Thoughts that you would be better off or of hurting yourself in some way: not at all Total score: 1 Depression Screening Interpretation: Positive Depression Screening Done: Yes 90456 - PHQ-9 Billing: Yes Source: Developed by Drs. Marco Smith, Judi Peña, Andrew Sanchez and colleagues, with an educational bryan from [employer]. Review of Systems Const Denies poor appetite and Denies weakness Eyes Denies no additional complaints ENT Reports Normal hearing present, Denies dizziness, Denies nasal congestion, Denies tinnitus and Denies sore throat Card Denies chest pain, Denies syncope, Denies rapid heart rate and Denies dyspnea Resp Denies cough and Denies dyspnea GI Denies change in stool character, Reports constipation, Denies diarrhea, Denies nausea and Denies vomiting Denies urinary frequency, Denies difficulty voiding and Denies dysuria Neuro Reports Normal hearing present, Denies confusion, Denies dizziness, Denies syncope and Denies weakness Psych Denies confusion Physical Exam Vital Signs: Last Vital Signs Temp 97.0 F 02/22/25 08:54 Pulse 79 02/22/25 08:54 BP 140/80 H 02/22/25 09:07 Pulse Ox 99 02/22/25 08:54 Oxygen Delivery Method Room Air 02/22/25 08:54 BMI result Body Mass Index 27.5 Const General: No confusion Orientation/consciousness: No confusion HEENT Head: Yes normocephalic Ears: external ears normal and TM's normal bilaterally Face and sinus: Yes normal facial exam Mouth: moist mucous membranes Throat: Yes tonsils normal Eyes Conjunctivae: conjunctivae normal Pupils: Equal, round and reactive pupils present and Pupil accommodation reflex normal Direct Ophthalmoscopy: normal light reflex Neck Neck: No lymphadenopathy Thyroid: Thyroid normal Chest Chest palpation & inspection: normal inspection of the chest Resp Effort & Inspection: normal respiratory effort and no audible wheezes Auscultation: clear to auscultation bilaterally, no crackles, no wheezes and lung sounds not diminished Cardio Rate: regular rate Rhythm: regular rhythm Peripheral pulses: radial pulses present and dorsalis pedis present GI Palpation (GI): no masses Auscultation: normal bowel sounds and normoactive bowel sounds Rectal Exam - Female: deferred Skin General skin exam: no rashes or lesions noted Rashes: no rashes Neuro General: No confusion Cranial nerves: Yes Equal, round and reactive pupils present and Yes Normal hearing present Cognition (Neuro): normal cognition Gait exam (Neuro): Normal gait present Motor exam (neuro): 5/5 motor strength present throughout Deep tendon reflexes (DTR's): Right brachioradialis reflex intensity grade: 2+, Left brachioradialis reflex intensity grade: 2+, Right patellar reflex intensity grade: 2+ and Left patellar reflex intensity grade: 2+ Extrem General: No edema Immunizations Tenivac (PF) 5 Lf unit-2 Lf unit/0.5 mL intramuscular syringe Performing Provider: Chaitanya Hayes MD Performing Location: [facility] [place] [facility] [place] [facility] Administered by: Bisi Thompson CMA on 02/22/25 09:40 Dose Route Admin Location Dispensed Lot Number Expiration Date [facility] Drum Stenciler 0.5 mL IM Left Deltoid 0.5 mL [id number] 08/18/26 [id number] [employer] Total Dispensed Waste 0.5 mL 0 % VIS Given Date VIS Provided VIS Publication Date 02/22/25 Single Vaccine 20 Eligibility Eligibility Date Funding Source Not [facility] Eligible 02/22/25 Private Assessment & Plan Assessment & Plan (1) Medicare annual wellness visit, subsequent: Code(s): Z00.00 - Encounter for general adult medical examination without abnormal findings Plan: Patient is advised to eat healthy, keep well hydrated, keep active and have adequate sleep. (2) Essential hypertension: Code(s): I10 - Essential (primary) hypertension Plan: Continue with blood pressure medication. Decrease salt intake and exercise on lisinopril 10 mg once a day (3) Hypercholesterolemia: Code(s): E78.00 - Pure hypercholesterolemia, unspecified Plan: Avoid fried foods, chicken skin, eggs, butter margarine, pastries and meat. Be it pork or beef they have a lot of cholesterol on atorvastatin 10 mg at bedtime July 2024 last blood work. (4) Osteopenia: Code(s): M85.80 - Other specified disorders of bone density and structure, unspecified site Plan: Discussed about bone density (5) GERD (gastroesophageal reflux disease): Code(s): K21.9 - Gastro-esophageal reflux disease without esophagitis Plan: Avoid the foods that causes that usually spicy foods, tomato products, juices, coffee, soda and foods that your sensitive to. After eating do not lie down, allow 3-4 hours before in lie down. And keep the head of bed above 30 degrees to avoid the acid from going up. (6) Invasive ductal carcinoma of left breast: Comment: June 2018, radiation, lumpectomy Dr. David 2018 anastrozole(March 2018) 7 year Code(s): C50.912 - Malignant neoplasm of unspecified site of left female breast Plan: Continue to follow-up with Hematology-Oncology and the surgeon on anastrozole. March 2024last mammogram (7) Onychomycosis: Code(s): B35.1 - Tinea unguium Plan History of Present Illness The patient is a 69-year-old female presenting for an annual wellness visit. She has a history of gastroesophageal reflux disease (GERD), which has been managed with omeprazole taken in the morning. The patient was diagnosed with left breast cancer and underwent a lumpectomy in 2018. She is currently on anastrozole and follows up with her breast surgeon and hematology oncology team. Hypertension is managed with lisinopril, which was recently increased to 20 mg once daily due to elevated blood pressure readings. The patient reports inconsistent exercise habits and increased salt intake, which may contribute to her blood pressure control challenges. Hypercholesterolemia is managed with atorvastatin 10 mg at bedtime, with recent blood work showing an LDL of 84 mg/dL. The patient has a history of low vitamin B12 and vitamin D levels, for which she has been prescribed supplements, although adherence is inconsistent. The patient has osteopenia, with the last bone density scan conducted in September 2020, and a follow-up scheduled for March. She experiences insomnia, often waking up at night and having difficulty returning to sleep. The patient reports tinnitus with associated hearing loss in the left ear, for which a hearing aid has been suggested but not yet utilized. She denies any new diagnoses or surgeries since her last visit. The patient has toenail fungus, for which topical treatments have been discussed, including Penlac nail lacquer. She also reports musculoskeletal pain, particularly in the arm and knee, which is suspected to be muscular in origin due to recent physical activity. A bone spur with a possible meniscus injury was identified during a previous urgent care visit, with recommendations for supportive care including a brace. Health Maintenance - Colonoscopy in 2021 with findings of tubular adenoma, follow-up recommended in five years - Mammogram last conducted in March 2024, up to date - Bone density scan scheduled for March - Vaccinations: COVID and flu vaccines scheduled, tetanus booster recommended - Exercise: Recently resumed regular physical activity - Diet: Advised to reduce salt intake Social History - Alcohol consumption: 3 to 5 drinks per week, typically wine - Exercise: Recently resumed regular physical activity - Diet: Increased salt intake noted, advised to reduce - Substance use: Denies tobacco and recreational drug use Review of Systems - General: Denies fever, weight loss, or fatigue - Cardiovascular: Reports elevated blood pressure, denies chest pain or palpitations - Respiratory: Denies dyspnea or cough - Gastrointestinal: Reports GERD, denies nausea or vomiting - Neurological: Reports tinnitus and hearing loss, denies dizziness or headaches - Musculoskeletal: Reports arm and knee pain, denies recent trauma - Dermatological: Reports toenail fungus - Genitourinary: Denies dysuria or hematuria, reports nocturia once per night Physical Exam General: Cooperative, healthy appearing, comfortable, no acute distress and well developed Orientation: Patient oriented x3 Limitations: No limitations Head: Normal to inspection Ears: Hearing loss in the left ear with tinnitus Nose: Normal external nose present Face and sinus: Normal facial exam Eyes: Appearance normal, both eyes and all related structures Neck: Normal visual inspection and Yes full ROM Respiratory: Normal respiratory effort and able to speak in complete sentences. Clear to auscultation bilaterally Cardiovascular: Regular rate and rhythm. Normal S1 and S2 GI: Normal to inspection. Soft to palpation and nontender Skin: No rashes or lesions noted, but patient reports issue with big toe possibly due to fungus Neuro: Patient oriented x3 Extremities: Normal to inspection, but reports soreness and pain in the arm, possibly muscular Results - Labs: Normal blood count, electrolytes, renal function, blood sugar, liver function, LDL cholesterol 84 mg/dL, low vitamin B12 and D, normal folic acid and thyroid function Plan Patient was informed and verbally consented to the use of an ambient scribe for clinic note documentation during this visit. 1. Gastroesophageal Reflux Disease (Gerd) The patient will continue with omeprazole for GERD management, taken in the morning to control symptoms. 2. Hypertension The patient's lisinopril dosage has been increased to 20 mg once daily due to elevated blood pressure readings. Lifestyle modifications including reduced salt intake and regular exercise were discussed to aid in blood pressure control. 3. Hypercholesterolemia The patient will continue atorvastatin 10 mg at bedtime, with recent labs showing an LDL of 84 mg/dL. 4. Osteopenia A follow-up bone density scan is scheduled for March to monitor osteopenia progression. 5. Tinnitus With Hearing Loss The patient was advised on the option of using a hearing aid for tinnitus and associated hearing loss, though she has not yet opted for it. 6. Toenail Fungus Topical treatment with Penlac nail lacquer was recommended for toenail fungus, with instructions for consistent application. 7. Musculoskeletal Pain The patient reports musculoskeletal pain in the arm and knee, likely muscular in origin due to recent physical activity. Supportive care including rest and monitoring was advised. 8. Bone Spur With Possible Meniscus Injury The patient was advised to use a knee brace for support and to monitor symptoms of the bone spur and possible meniscus injury. Discussion Notes During the visit, we discussed the management of hypertension, including increasing lisinopril to 20 mg daily and the importance of lifestyle modifications such as reducing salt intake and maintaining regular exercise. We reviewed the patient's cholesterol management with atorvastatin and the recent LDL results. The patient was informed about the option of using a hearing aid for tinnitus and the use of Penlac for toenail fungus. Preventative care measures, including upcoming vaccinations and scheduled screenings, were also discussed. Patient Instructions - Continue taking omeprazole in the morning for GERD management. - Take lisinopril 20 mg once daily for blood pressure control. - Maintain atorvastatin 10 mg at bedtime for cholesterol management. - Apply Penlac nail lacquer as directed for toenail fungus. - Engage in regular physical activity and reduce salt intake to aid in blood pressure management. - Attend scheduled bone density scan and vaccinations. Orders: Orders Comprehensive Met. Panel 2 Months E78.00 - Pure hypercholesterolemia, unspecified Free T4 (Free Thyroxine) 2 Months E78.00 - Pure hypercholesterolemia, unspecified Hemoglobin A1c 2 Months E78.00 - Pure hypercholesterolemia, unspecified Thyroid Stimulating Hormone 2 Months E78.00 - Pure hypercholesterolemia, unspecified Vitamin B12 and Folate 2 Months E78.00 - Pure hypercholesterolemia, unspecified Complete Blood Count Auto Diff 2 Months E78.00 - Pure hypercholesterolemia, unspecified Lipid Panel 2 Months E78.00 - Pure hypercholesterolemia, unspecified Vitamin D 25-OH Total 2 Months E78.00 - Pure hypercholesterolemia, unspecified Magnesium 2 Months E78.00 - Pure hypercholesterolemia, unspecified Td Immunization Today Z23 - Encounter for immunization Medications: New ciclopirox 8% 1 appl topical BEDTIME 6.6 mL 1RF 4 weeks B35.1 - Tinea unguium Changed From lisinopril 10 mg PO DAILY 90 tabs 2RF I10 - Essential (primary) hypertension To lisinopril 20 mg PO DAILY 90 tabs 2RF I10 - Essential (primary) hypertension Quality Reporting (2019) Depression/Bipolar (159/160/161/177) PHQ-9: Total score: 1 Coding Level of Care Code Medicare Subsequent (G0439) Diagnoses Medicare annual wellness visit, subsequent Z00.00 Essential hypertension I10 Hypercholesterolemia E78.00 Osteopenia M85.80 GERD (gastroesophageal reflux disease) K21.9 Invasive ductal carcinoma of left breast C50.912 Onychomycosis B35.1 Additional Codes PHQ-9 - 43086 - PHQ-9 Billing: Yes ([id number])
[2025-02-22 09:07] VITALS: BP 140/80
--- OUTSIDE RECORDS SUMMARY | 2025-02-22 09:43 | XMS_ITS | Clinical Summary ---
Author Organization [facility] Address [address] [place] [phone] Phone Care Team Providers Care Mold Tooler Name Role Phone Chaitanya Hayes MD Primary Care Provider [phone] Allergies Active Allergy Reactions Criticality Noted Date Comments Sulfa (Sulfonamide Antibiotics) Hives 01/2024 Medications omeprazole (PRILOSEC) 10 MG capsule Take 10 mg by mouth. 03/11/20 23 Active lisinopril (PRINIVIL,ZESTRIL) 10 MG tablet Take 10 mg by mouth daily. Active anastrozole (ARIMIDEX) 1 mg tablet Take 1 mg by mouth daily. Active cholecalciferol, vitamin D3, 25 mcg (1,000 unit) capsule Take 1 capsule by mouth every morning. 10/11/19 25 Active meclizine (ANTIVERT) 25 mg tablet TAKE 1 TABLET BY MOUTH DAILY NEEDED FOR MOTION SICKNESS 09/18/19 25 Active ondansetron (ZOFRAN-ODT) 4 MG disintegrating tablet DISSOLVE 1 TABLET ON THE TONGUE EVERY 8 HOURS NEEDED FOR NAUSEA OR VOMITING 09/18/19 25 Active azelaic acid (FINACEA) 15 % gel APPLY TO FACE TWICE DAILY FOR MAINTENANCE OF ROSACEA 06/15/19 25 Active atorvastatin (LIPITOR) 10 MG tablet Take 10 mg by mouth nightly at bedtime. at bedtime. 06/16/19 25 Active betamethasone, augmented, (DIPROLENE AF) 0.05 % cream Apply 50 g topically. 08/30/19 25 Active Active Problems No known active problems Social History Tobacco Use Types Packs/Day Years Used Date Smoking Tobacco: Former Cigarettes Smokeless Tobacco: Never Tobacco Cessation:Counseling Given: Not Answered Education Answer Date Recorded Are you interested in more education? Not on tiny e 12/27/2023 Are you concerned about learning? Not on file 12/27/2023 No 12/27/2023 No 12/27/2023 Digital Access Answer Date Recorded No 12/27/2023 No 12/27/2023 Reliable internet access at home? Not on file 12/27/2023 Device with a working camera? Not on file Comments Unknown Sex and Gender Information Value Date Recorded Sex Assigned at Not on file Legal Sex Female 6:35 PM EST Gender Identity Not on file Sexual Orientation Not on file Last Filed Vital Signs Vital Sign Reading Time Taken Comments Blood Pressure 138/76 11/04/2024 3:09 PM EDT Pulse 80 11/04/2024 3:09 PM EDT Temperature 35.9 C (96.6 F) 11/04/2024 3:09 PM EDT Respiratory Rate 17 11/04/2024 3:09 PM EDT Oxygen Saturation 99% 11/04/2024 3:09 PM EDT Inhaled Oxygen Concentration - - Weight 72.6 kg (160 lb) 12/27/2023 12:33 PM EDT per pt Height - - Body Mass Index - - Plan of Treatment Health Maintenance Due Date Last Done Comments Adult Td,Tdap Booster 1957 CREATININE LEVEL 1957 POTASSIUM LEVEL 1957 DEPRESSION SCREENING 1969 SMOKING Hx and SMOKELESS TOBACCO SCREENING 1970 HEPATITIS C SCREENING 1975 MAMMOGRAM 1997 COLOGUARD 2002 COLONOSCOPY 2002 COLORECTAL CANCER SCREENING 2002 FIT TEST 2002 FOBT 2002 SIGMOIDOSCOPY 2002 VIRTUAL COLONOSCOPY 2002 ZOSTER VACCINES (1 of 2) 2007 OSTEOPOROSIS SCREENING INITIAL (ONE-TIME) 2022 INFLUENZA VACCINE (#1) 2024 , 02/28/2023, 02/27/2022, Additional history exists COVID-19 VACCINE ( season) 2025 02/28/2024, 02/28/2023, 02/27/2022, Additional history exists LIPID PANEL 09/12/2029 09/12/2024 RSV VACCINE Completed 04/04/2023 PNEUMOCOCCAL VACCINES (50+ years) Completed 04/09/2024, 09/25/2018 HEPATITIS A VACCINES Aged Out No long er eligible based on patient's age to complete this topic HIB VACCINES Aged Out No longer eligi ble based on patient's age to complete this topic MENINGOCOCCAL VACCINES (ACWY) Aged Out No longer eligible based on patient's age to complete this topic MENINGOCOCCAL VACCINES (B) Aged Out N o longer eligible based on patient's age to complete this topic Medical Devices Not on file Insurance [facility] Care Teams Mold Tooler Relationship Specialty Start Date End Date Chaitanya Hayes MD [address] [place] [id number] PCP - General Internal Medicine 12/27/23 Additional Source Comments The information contained in this document represents components of the legal health record. It is not the complete legal health record.[facility]
== END 2025-02-22 09:42 | disposition home or self-care (01) ==
LOC: HO.HMCH 08:52
PROVIDERS: PCP Internal Medicine; Visit Provider Internal Medicine
DX: Z00.00 Encounter for general adult medical examination without abnormal findings (principal); I10 Essential (primary) hypertension; C50.912 Malignant neoplasm of unspecified site of left female breast; E78.00 Pure hypercholesterolemia, unspecified; Z68.27 Body mass index [BMI] 27.0-27.9, adult; M85.80 Other specified disorders of bone density and structure, unspecified site; K21.9 Gastro-esophageal reflux disease without esophagitis; B35.1 Tinea unguium; Z23 Encounter for immunization

== ENCOUNTER → 2025-02-22 08:51 | Outpatient (BNVA) | payer MEDICARE, SELFPAY | PROVIDERS: PCP Internal Medicine; Visit Provider Internal Medicine | DX: Z00.00 Encounter for general adult medical examination without abnormal findings (principal); K21.9 Gastro-esophageal reflux disease without esophagitis; I10 Essential (primary) hypertension; E78.00 Pure hypercholesterolemia, unspecified; M85.80 Other specified disorders of bone density and structure, unspecified site; C50.912 Malignant neoplasm of unspecified site of left female breast; B35.1 Tinea unguium; H93.12 Tinnitus, left ear; M79.10 Myalgia, unspecified site; Z23 Encounter for immunization | CPT/HCPCS: 90471; 90714; 96127 ==